=== PATIENT | male | born 1960 | race Caucasian/White ===

== ENCOUNTER 2017-08-26 07:56 | Emergency (ER) | payer MEDICARE, MEDICAID ==
[~2017-08-26 07:56] MED LIST: ALBU8.5H IH; BACDS PO; BUDE10.2 INH; BUSP10TA95 PO; CIPR-214 PO; DICL1ADH TP; DOCU-416 PO; DUL30 PO; DULO60CA51 PO; DULO60CA56 PO; GAB300 PO; GABA-549 PO; HYDR2TAB74 PO; IBUP-2708 PO; LISI-374 PO; LISI20TA29 PO; LOR5 PO; LOR5/325 PO; METH-543 PO; METR-160 PO; MIRT-1 PO; OMEP-137 PO; OXYC-823 PO; OXYC-854 PO; OXYC-865 PO; OXYC1TAB54 PO; PER PO; PERCODAN PO; PRED-314 PO; SIMV-49 PO; TADA5TAB7 PO; TIZ4 PO; [UNRECOGNIZED DRUG - CODE] PO
--- NOTE | 2017-08-26 08:03 | ER Report ---
History and Physical Time Seen By MD: 08:01 HPI/ROS CHIEF COMPLAINT: Abdominal pain HISTORY OF PRESENT ILLNESS: Patient is a 56-year-old male who has had approximately 2-3 weeks of generalized abdominal pain which is worsened in the last 24 hours and states that it is accompanied with a decrease in caliber of stools along with tenesmus. He states he's been on the toilet for the last "20 hours" in the last 24 hours. He reports some nausea but no vomiting. Denies any fevers or chills. Reports crampy abdominal pain. Patient has had multiple abdominal surgeries in the past including multiple hernia repairs he also reports history of gallbladder surgery that required a stent of biliary drains secondary to peritonitis. Patient denies any urinary symptoms. Denies any chest pain or shortness of breath. REVIEW OF SYSTEMS: Constitutional: No fever, no chills. Eyes: No discharge. ENT: No sore throat. Cardiovascular: No chest pain, no palpitations. Respiratory: No cough, no shortness of breath. Gastrointestinal: Generalized abdominal pain associated with nausea no vomiting. Reports decreased frequency and caliber of stools Genitourinary: No hematuria. Musculoskeletal: No back pain. Skin: No rashes. Neurological: No headache. Allergies: Coded Allergies: iodine (Verified Allergy, Unknown, HIVES, 08/26/17) only from red fish ketoprofen (Verified Allergy, Unknown, HIVES, 08/26/17) Home Meds Active Scripts Metronidazole (FLAGYL) 500 Mg Tablet, 500 MG PO BID, #14 TAB 0 Refills Prov:JEAN-PAUL CH MD 08/26/17 Ciprofloxacin Hcl (CIPRO) 500 Mg Tablet, 500 MG PO BID, #14 TAB 0 Refills Prov:JEAN-PAUL CH MD 08/26/17 Ondansetron Hcl (ZOFRAN) 4 Mg Tablet, 4 MG PO Q8H for Nausea, #15 TAB 0 Refills Prov:JEAN-PAUL CH MD 08/26/17 Reported Medications Diphenhydramine Hcl (BENADRYL) 25 Mg Capsule, 25 MG PO BID, CAPSULE 08/26/17 Albuterol Sulfate 90 Mcg/Act (PROAIR HFA 90 MCG/ACT) 8.5 Gm Hfa.aer.ad, 2 PUFF IH Q4-6H, INHALER 11/16/16 Budesonide/Formoterol Fumarate (SYMBICORT 160-4.5 MCG INHALER) 10.2 Gm Inh, 1 PUFF INH DAILY, INH 10/01/15 Omeprazole (OMEPRAZOLE) 20 Mg Tablet.dr, 20 MG PO QDAY, TAB 10/01/15 Buspirone Hcl (BUSPIRONE HCL) 10 Mg Tablet, 10 MG PO BID, #20 TAB 10/01/15 Gabapentin (GABAPENTIN) 300 Mg Capsule, 600 MG PO TID 08/28/12 Lisinopril (LISINOPRIL) 20 Mg Tablet, 20 MG PO QDAY 08/28/12 Discontinued Reported Medications Oxycodone Hcl (OXYCONTIN) 10 Mg Tab.er.12h, 10 MG PO Q6H, TAB 11/16/16 Simvastatin (SIMVASTATIN) 20 Mg Tablet, 20 MG PO HS, TAB 11/16/16 Discontinued Scripts Metronidazole (METRONIDAZOLE) 500 Mg Tablet, 500 MG PO Q12H, #14 TAB 0 Refills Prov:JEAN-PAUL CH MD 11/16/16 Ciprofloxacin Hcl (CIPROFLOXACIN HCL) 500 Mg Tablet, 500 MG PO Q12H, #14 TAB 0 Refills Prov:JEAN-PAUL CH MD 11/16/16 Oxycodone Hcl/Acet 5/325 Mg (ENDOCET 5-325 TABLET) 1 Each Tablet, 1 EACH PO Q4H for PAIN, #20 TAB 0 Refills Prov:JEAN-PAUL CH MD 11/16/16 Past Medical/Surgical History Past medical history for diverticulitis, asthma, COPD, posttraumatic stress disorder, hypertension, hepatitis C, chronic back pain. Past surgical history for cholecystectomy, history of left testicle removal, history of inguinal repair 3, history of surgical spinal fusion anterior spine C2-6. Hx Smoking: Yes (20 CIGS/DAY X 40YRS) Smoking Status: Current: Every Day Smoker Hx Substance Use Disorder: Yes (METH, COKE, OPIATES, clean for 7 years) Hx Alcohol Use: Yes Constitutional Vital Sign - Last 24 Hours 08/26/17 08/26/17 08/26/17 08/26/17 08:00 08:03 08:11 08:30 Temp 97.6 Pulse 102 103 Resp 16 B/P (MAP) 127/88 127/88 (101) 102/83 (89) Pulse Ox 97 96 O2 Delivery Room Air 08/26/17 08/26/17 08/26/17 08/26/17 08:41 08:56 09:00 09:11 Pulse 87 83 89 B/P (MAP) 95/63 (74) Pulse Ox 97 91 92 08/26/17 08/26/17 08/26/17 08/26/17 09:26 09:31 09:36 09:41 Pulse 85 86 84 89 Pulse Ox 91 94 94 92 08/26/17 08/26/17 08/26/17 08/26/17 09:46 09:51 09:56 10:00 Pulse 89 88 84 B/P (MAP) 97/67 (77) Pulse Ox 90 92 94 08/26/17 08/26/17 08/26/17 08/26/17 10:01 11:00 11:06 11:11 Pulse 90 86 86 B/P (MAP) 99/76 (84) Pulse Ox 96 89 91 08/26/17 08/26/17 08/26/17 08/26/17 11:26 11:30 11:41 11:56 Pulse 84 82 B/P (MAP) 89/65 (73) Pulse Ox 95 95 95 08/26/17 08/26/17 08/26/17 08/26/17 12:00 12:05 12:10 12:30 Pulse 82 79 B/P (MAP) 89/64 (72) 100/73 (82) Pulse Ox 95 97 08/26/17 08/26/17 08/26/17 13:00 13:30 13:35 Pulse 80 B/P (MAP) 85/63 (70) 86/68 (74) Pulse Ox 95 Intake and Output 08/26/17 08/26/17 08/27/17 15:00 23:00 07:00 Intake Total 1150 ml Balance 1150 ml Physical Exam General/Constitutional: Patient is awake, alert, nontoxic and in no acute respiratory distress. Head: Normocephalic and atraumatic. Eyes: Conjunctival clear, Pupils are equal and reactive to light. Extraocular muscles are intact and symmetrical. Sclera are clear and anicteric. Ears:External canals are clear. Tympanic membranes are clear with normal landmarks and light reflex. Nares: No rhinorrhea or bleeding. Turbinates are pink and moist. Oropharyngeal: Mucous membranes are moist. Neck: Supple, no adenopathy. Cardiovascular: Heart is regular rate and rhythm without audible murmurs, rubs or gallops. Pulmonary: Lungs are clear to auscultation bilaterally. There are no wheezes, rales, or rhonchi. Chest rise is symmetrical Abdomen: Soft, generalized pain with palpation. No voluntary or involuntary guarding no apparent peritoneal signs. Extremities: No gross deformities, No peripheral cyanosis. Able to move all 4 extremities. Neuro: Alert and oriented X3, Skin: No rashes, skin is warm dry and well perfused. Medical Decision Making Data Points Result Diagram: 08/26/17 0807 08/26/17 08 Laboratory Hematology Test 08/26/17 08:00 08/26/17 08:07 Urine Color Yellow Urine Clarity Clear Urine pH 7.0 pH (4.8-9.5) Urine Specific [place] 1.015 Urine Protein Negative mg/dL (NEGATIVE) Urine Glucose (UA) Negative mg/dL (NEGATIVE) Urine Ketones 20 mg/dL (NEGATIVE) Urine Blood Negative (NEGATIVE) Urine Nitrite Negative (NEGATIVE) Urine Bilirubin Negative (NEGATIVE) Urine Urobilinogen 4.0 mg/dL (0.2-1.9) Urine Leukocyte Esterase Negative (NEGATIVE) Urine RBC None /HPF (0-2/HPF) Urine WBC None /HPF (0-5/HPF) Urine Squamous Epithelial Cells None /LPF (</=FEW) Urine Bacteria Negative /HPF (NONE-FEW) Urine Mucus Few /HPF (NONE-FEW) Red Blood Count 5.87 M/uL (4.00-5.60) Mean Corpuscular Volume 86.3 fL (80.0-96.0) Mean Corpuscular Hemoglobin 29.9 pg (26.0-33.0) Mean Corpuscular Hemoglobin Concent 34.6 g/dL (32.0-36.0) Red Cell Distribution Width 13.1 % (11.5-14.5) Mean Platelet Volume 8.2 fL (7.2-11.1) Neutrophils (%) (Auto) 84.9 % (39.4-72.5) Lymphocytes (%) (Auto) 8.7 % (17.6-49.6) Monocytes (%) (Auto) 5.5 % (4.1-12.4) Eosinophils (%) (Auto) 0.3 % (0.4-6.7) Basophils (%) (Auto) 0.6 % (0.3-1.4) Nucleated RBC Relative Count (auto) 0.0 /100WBC Neutrophils # (Auto) 16.2 K/uL (2.0-7.4) Lymphocytes # (Auto) 1.7 K/uL (1.3-3.6) Monocytes # (Auto) 1.1 K/uL (0.3-1.0) Eosinophils # (Auto) 0.1 K/uL (0.0-0.5) Basophils # (Auto) 0.1 K/uL (0.0-0.1) Nucleated RBC Absolute Count (auto) 0.00 K/uL Peripheral Blood Smear Yes Y/N Prothrombin Time 13.9 seconds (12.0-14.4) Prothromb Time International Ratio 1.07 Activated Partial Thromboplast Time 42 seconds (23-35) Sodium Level 138 mmol/L (137-145) Potassium Level 3.9 mmol/L (3.5-5.0) Chloride Level 99 mmol/L (98-107) Carbon Dioxide Level 24 mmol/L (22-30) Blood Urea Nitrogen 10 mg/dl (9-21) Creatinine 0.90 mg/dl (0.66-1.25) Glomerular Filtration Rate Calc > 60.0 Random Glucose 141 mg/dl (75-110) Calcium Level 9.4 mg/dl (8.4-10.2) Total Bilirubin 1.0 mg/dl (0.2-1.3) Aspartate Amino Transf (AST/SGOT) 18 U/L (0-35) Alanine Aminotransferase (ALT/SGPT) 26 U/L (0-56) Alkaline Phosphatase 99 U/L (0-126) Total Protein 7.9 g/dl (6.3-8.2) Albumin 4.3 g/dl (3.5-5.0) Amylase Level 59 U/L (0-110) Lipase 33 U/L (23-300) Helicobacter pylori IgG Antibody Negative (NEGATIVE) Chemistry Test 08/26/17 08:00 08/26/17 08:07 Urine Color Yellow Urine Clarity Clear Urine pH 7.0 pH (4.8-9.5) Urine Specific [place] 1.015 Urine Protein Negative mg/dL (NEGATIVE) Urine Glucose (UA) Negative mg/dL (NEGATIVE) Urine Ketones 20 mg/dL (NEGATIVE) Urine Blood Negative (NEGATIVE) Urine Nitrite Negative (NEGATIVE) Urine Bilirubin Negative (NEGATIVE) Urine Urobilinogen 4.0 mg/dL (0.2-1.9) Urine Leukocyte Esterase Negative (NEGATIVE) Urine RBC None /HPF (0-2/HPF) Urine WBC None /HPF (0-5/HPF) Urine Squamous Epithelial Cells None /LPF (</=FEW) Urine Bacteria Negative /HPF (NONE-FEW) Urine Mucus Few /HPF (NONE-FEW) White Blood Count 19.1 k/uL (4.5-11.0) Red Blood Count 5.87 M/uL (4.00-5.60) Hemoglobin 17.5 g/dL (14.0-18.0) Hematocrit 50.7 % (42.0-52.0) Mean Corpuscular Volume 86.3 fL (80.0-96.0) Mean Corpuscular Hemoglobin 29.9 pg (26.0-33.0) Mean Corpuscular Hemoglobin Concent 34.6 g/dL (32.0-36.0) Red Cell Distribution Width 13.1 % (11.5-14.5) Platelet Count 509 K/uL (150-450) Mean Platelet Volume 8.2 fL (7.2-11.1) Neutrophils (%) (Auto) 84.9 % (39.4-72.5) Lymphocytes (%) (Auto) 8.7 % (17.6-49.6) Monocytes (%) (Auto) 5.5 % (4.1-12.4) Eosinophils (%) (Auto) 0.3 % (0.4-6.7) Basophils (%) (Auto) 0.6 % (0.3-1.4) Nucleated RBC Relative Count (auto) 0.0 /100WBC Neutrophils # (Auto) 16.2 K/uL (2.0-7.4) Lymphocytes # (Auto) 1.7 K/uL (1.3-3.6) Monocytes # (Auto) 1.1 K/uL (0.3-1.0) Eosinophils # (Auto) 0.1 K/uL (0.0-0.5) Basophils # (Auto) 0.1 K/uL (0.0-0.1) Nucleated RBC Absolute Count (auto) 0.00 K/uL Peripheral Blood Smear Yes Y/N Prothrombin Time 13.9 seconds (12.0-14.4) Prothromb Time International Ratio 1.07 Activated Partial Thromboplast Time 42 seconds (23-35) Glomerular Filtration Rate Calc > 60.0 Calcium Level 9.4 mg/dl (8.4-10.2) Total Bilirubin 1.0 mg/dl (0.2-1.3) Aspartate Amino Transf (AST/SGOT) 18 U/L (0-35) Alanine Aminotransferase (ALT/SGPT) 26 U/L (0-56) Alkaline Phosphatase 99 U/L (0-126) Total Protein 7.9 g/dl (6.3-8.2) Albumin 4.3 g/dl (3.5-5.0) Amylase Level 59 U/L (0-110) Lipase 33 U/L (23-300) Helicobacter pylori IgG Antibody Negative (NEGATIVE) Coagulation Test 08/26/17 08:07 Prothrombin Time 13.9 seconds Prothromb Time International Ratio 1.07 Activated Partial Thromboplast Time 42 seconds Urinalysis Test 08/26/17 08:00 Urine Color Yellow Urine Clarity Clear Urine pH 7.0 pH (4.8-9.5) Urine Specific [place] 1.015 Urine Protein Negative mg/dL (NEGATIVE) Urine Glucose (UA) Negative mg/dL (NEGATIVE) Urine Ketones 20 mg/dL (NEGATIVE) Urine Blood Negative (NEGATIVE) Urine Nitrite Negative (NEGATIVE) Urine Bilirubin Negative (NEGATIVE) Urine Urobilinogen 4.0 mg/dL (0.2-1.9) Urine Leukocyte Esterase Negative (NEGATIVE) Urine RBC None /HPF (0-2/HPF) Urine WBC None /HPF (0-5/HPF) Urine Squamous Epithelial Cells None /LPF (</=FEW) Urine Bacteria Negative /HPF (NONE-FEW) Urine Mucus Few /HPF (NONE-FEW) EKG/Imaging EKG Interpretation EKG shows normal sinus rhythm with a ventricular rate of [address] segment or T-wave abnormalities. Monitor Interpretation: Normal Sinus Rhythm ED Course/Re-evaluation Clinical Indication for ER IV: Hydration, IV Access ED Course 08/26/2017 9:17:06 am patient with an elevated white blood cell count 19,000 with a left shift. Obstruction series shows nonobstructive bowel gas pattern however patient still having pain. Our CT scanner is not functioning currently. There is enough suspicion that the patient may have some abdominal pathology based on his history and physical exam as well as elevated white blood cell count with left shift. Plan will be a non-contrast MRI of the abdomen and pelvis at this time. Patient made aware of his current emergency department plan and understands he will be getting an MRI. MRI concerning for diverticulitis but also thickening of the rectosigmoid colon it was recommended that after completion of treatment for diverticulitis the patient schedule follow up for an outpatient colonoscopy; this information, including MRI findings were discussed with the patient and the need to follow up for the outpatient colonoscopy were discussed. Nurse Lexi Bansal was present for this discusion. Patient will be prescribed cipro, flagyl and zofran. A script for 120; ten milligram oxycodone was just filled by the patient on 08/12/2017; patient was instructed to take this as directed for pain. Decision to Disposition Date: Aug 26, 2017 Decision to Disposition Time: 13:51 Depart Departure Latest Vital Signs Vital Signs Date Time Temp Pulse Resp B/P (MAP) Pulse Ox O2 Delivery O2 Flow Rate FiO2 08/26/17 13:35 80 95 08/26/17 13:30 86/68 (74) 08/26/17 08:00 97.6 16 Room Air Impression: Primary Impression: Diverticulitis Condition: Improved Disposition: HOME OR SELF-CARE Referrals: RAHUL TORRES (PCP) 1 Week If symptoms persist RENNY MONTGOMERY MD To schedule an outpatient colonoscopy within the next 30 days New Scripts Metronidazole (FLAGYL) 500 Mg Tablet 500 MG PO BID, #14 TAB 0 Refills Prov: JEAN-PAUL CH MD 08/26/17 Ciprofloxacin Hcl (CIPRO) 500 Mg Tablet 500 MG PO BID, #14 TAB 0 Refills Prov: JEAN-PAUL CH MD 08/26/17 Ondansetron Hcl (ZOFRAN) 4 Mg Tablet 4 MG PO Q8H for Nausea, #15 TAB 0 Refills Prov: JEAN-PAUL CH MD 08/26/17 Patient Instructions: Diverticulitis (ED) Additional Instructions: Your MRI today showed thickening of the rectosigmoid colon, this most likely represent acute diverticulitis however colon cancer was not excluded. You will be treated with antibiotics and pain medication over the next week for treatment of the diverticulitis. Because of the MRI finding, it is still recommended that you schedule a follow-up appointment with your primary care provider or a general surgeon to schedule an outpatient colonoscopy to either identify or rule out potential malignancy (cancer). We will provide you with contact information for Dr. Dudley Doran who is a general surgeon and can perform the colonoscopy in [place]. JEAN-PAUL CH MD Aug 26, 2017 08:03
[2017-08-26] MEDS ORDERED: DIPH-740 PO (08:05)
[2017-08-26] MEDS ORDERED: NS(*) 0.9% 1000 ML BAG 1,000 ML IV ONE (08:07)
[2017-08-26 08:19] LABS: PLATELET COUNT, AUTOMATED 509 K/uL (150-450)
[2017-08-26] MEDS ORDERED: ONDANSETRON 4 MG/2 ML VIAL IVP ONE (08:20)
[2017-08-26] MEDS ORDERED: KETOROLAC 15 MG/ML VIAL IVP ONE (08:20)
[2017-08-26 08:24] LABS: INR 1.07
[2017-08-26] MEDS ORDERED: diphenhydrAMINE 50 MG/ML VIAL IVP ONE (08:25)
--- NOTE | 2017-08-26 08:28 | EKG ---
FACILITY: [facility] - [place] PATIENT NAME: CANDACE WADDELL : [id number] MR: [id number] V: [id number] EXAM DATE: ORDERING PHYSICIAN: JEAN-PAUL CH TECHNOLOGIST: KEN De La Cruz Reason : PAIN Blood Pressure : / mmHG Vent. Rate : 097 BPM Atrial Rate : 097 BPM P-R Int : 144 ms QRS Dur : 094 ms QT Int : 372 ms P-R-T Axes : 050 037 042 degrees QTc Int : 472 ms Normal sinus rhythm Normal ECG When compared with ECG of 27-SEP-2012 09:25, No significant change was found Confirmed by RENNY MARSH ([id number]) on 08/28/2017 2:44:50 PM Referred By: DIMA Confirmed By:RENNY MARSH
--- NOTE | 2017-08-26 09:02 | RADIOLOGY IMAGING REPORT ---
FACILITY: [facility] - [place] PATIENT NAME: Francis Storey : 1960 MR: [id number] V: [id number] EXAM DATE: ORDERING PHYSICIAN: JEAN-PAUL CH TECHNOLOGIST: Location: [facility] - [place] Patient: Francis Storey : 1960 Visit/Account:[id number] Date of Sevice: 08/26/2017 Exam type: ACUTE ABDOMEN SERIES 3 VIEW INDICATION: Abdominal pain x3 weeks. COMPARISON: Chest radiograph dated September 27, 2012. FINDINGS: Heart size within normal limits. There is no focal infiltrate or consolidation. Mild diffu se bronchial wall thickening. No evidence of pneumothorax or pleural effusion. Chronic nonspecific elevation of the right hemidiaphragm. Partial visualization of cervical fusion hardware. Bowel gas seen throughout the abdomen in a nonobstructive pattern. There are no pathologic calcificat ions identified. No evidence of free air under the right hemidiaphragm. IMPRESSION: 1. No acute cardiopulmonary process. 2. Nonobstructive bowel gas pattern Report Dictated By: Macho Rosas MD at 08/26/2017 8:54 AM Report E-Signed By: Macho Rosas MD at 08/26/2017 8:56 AM WSN:[email or web address]
[2017-08-26] MEDS ORDERED: LORazepam 2 MG/ML VIAL IVP ONE (09:10)
--- NOTE | 2017-08-26 11:33 | RADIOLOGY IMAGING REPORT ---
FACILITY: [facility] [place] PATIENT NAME: rFancis Storey : 1960 MR: [id number] V: [id number] EXAM DATE: ORDERING PHYSICIAN: JEAN-PAUL CH TECHNOLOGIST: Location: [facility] - [place] Patient: Francis Storey : 1960 Visit/Account:[id number] Date of Sevice: 08/26/2017 Exam type: ABDOMEN W/O CONTRAST, PELVIS W/O CONTRAST History: abdominal pain Comparison: CT scan 11/16/2016. TECHNIQUE: Multiplanar multisequence MRI imaging of the abdomen and pelvis was performed without cont rast. Findings: Abdomen: There is elevation the right hemidiaphragm which appears unchanged. Liver measures 20 cm in craniocau nicholas length. Some small benign subcentimeter cysts are noted in the left lobe of liver. Gallbladder is absent. Spleen measures 10.9 cm in length. Low density along the lateral margin the spleen corresponds to nirmal cium on prior exam is likely benign. Adrenals and pancreas are unremarkable. Some small benign renal cortical cysts are noted. No free fluid. There is a small hiatal hernia. Pelvis: Imaging of the pelvis demonstrates diverticulosis. There is some inflammation and thickening of the r ectosigmoid colon suggesting diverticulitis. Malignancy is not excluded by MRI and without contrast. No obvious abscess within the limits of MRI. The osseous structures are unremarkable. IMPRESSION: 1. There appears to be diverticulitis of the rectosigmoid colon in the deep pelvis with thickening an d inflammation amongst a background of diverticulosis. No obvious abscess of the pelvis within limits of a noncontrast study. Malignancy would be difficult to exclude by MRI. Recommend colonoscopy when the patient's acute inflammation resolves unless the patient has had recen t colonoscopy. Report Dictated By: Mehul Garcia MD at 08/26/2017 11:14 AM Report E-Signed By: Mehul Garcia MD at 08/26/2017 11:29 AM WSN:[id number]
--- NOTE | 2017-08-26 11:33 | RADIOLOGY IMAGING REPORT ---
FACILITY: [facility] - [place] PATIENT NAME: Francis Storey : 1960 MR: [id number] V: [id number] EXAM DATE: ORDERING PHYSICIAN: JEAN-PAUL CH TECHNOLOGIST: Location: [facility] - [place] Patient: Francis Storey : 1960 Visit/Account:[id number] Date of Sevice: 08/26/2017 Exam type: ABDOMEN W/O CONTRAST, PELVIS W/O CONTRAST History: abdominal pain Comparison: CT scan 11/16/2016. TECHNIQUE: Multiplanar multisequence MRI imaging of the abdomen and pelvis was performed without cont rast. Findings: Abdomen: There is elevation the right hemidiaphragm which appears unchanged. Liver measures 20 cm in craniocau nicholas length. Some small benign subcentimeter cysts are noted in the left lobe of liver. Gallbladder is absent. Spleen measures 10.9 cm in length. Low density along the lateral margin the spleen corresponds to nirmal cium on prior exam is likely benign. Adrenals and pancreas are unremarkable. Some small benign renal cortical cysts are noted. No free fluid. There is a small hiatal hernia. Pelvis: Imaging of the pelvis demonstrates diverticulosis. There is some inflammation and thickening of the r ectosigmoid colon suggesting diverticulitis. Malignancy is not excluded by MRI and without contrast. No obvious abscess within the limits of MRI. The osseous structures are unremarkable. IMPRESSION: 1. There appears to be diverticulitis of the rectosigmoid colon in the deep pelvis with thickening an d inflammation amongst a background of diverticulosis. No obvious abscess of the pelvis within limits of a noncontrast study. Malignancy would be difficult to exclude by MRI. Recommend colonoscopy when the patient's acute inflammation resolves unless the patient has had recen t colonoscopy. Report Dictated By: Mehul Garcia MD at 08/26/2017 11:14 AM Report E-Signed By: Mehul Garcia MD at 08/26/2017 11:29 AM WSN:[id number]
[2017-08-26] MEDS ORDERED: LEVOFLOXACIN/D5W 750 MG/150 ML 150 ML IVPB ONE (12:00)
[2017-08-26] MEDS ORDERED: ONDA4TAB97 PO (13:02)
[2017-08-26] MEDS ORDERED: LOR5/325 PO (13:02)
[2017-08-26 13:30] VITALS: BP 86/68
[2017-08-26] MEDS ORDERED: CIPR-344 PO (13:43)
[2017-08-26] MEDS ORDERED: METR-1 PO (13:43)
== END 2017-08-26 13:46 | disposition home or self-care (01) ==
LOC: ER 08:18
DX: K57.32 Diverticulitis of large intestine without perforation or abscess without bleeding (principal)
CPT/HCPCS: 72195; 74022; 74181; 81001; 82150; 83690; 85025; 85610; 85730; 86677; 87088; 93005; 96361; 96374; 96375; 99285; J1200; J1885; J1956; J2060; J2405; J7030; 82040; 82247; 82310; 82374; 82435; 82565; 82947; 84075; 84132; 84155; 84295; 84450; 84460; 84520

== ENCOUNTER 2017-09-05 10:20 | Emergency (ER) | payer MEDICARE, MEDICAID ==
--- NOTE | 2017-09-05 10:24 | ER Report ---
History and Physical Time Seen By MD: 10:24 HPI/ROS CHIEF COMPLAINT: Abdominal pain; sent from [facility] urgent care HISTORY OF PRESENT ILLNESS: Patient is a 56-year-old male who I had seen on August 26 for 2-3 weeks of generalized abdominal pain. During that visit the patient had an MRI of his abdomen is worse CT scanner was down which showed probable diverticulitis but also concern for narrowing of the rectosigmoid colon. She was started on Cipro and Flagyl to treat the diverticulitis. Patient states that he completed the entire course. Because of the finding on MRI the patient was referred to Dr. Dudley Doran which he has an appointment on September 12 for evaluation of his abdominal pain and possible colonoscopy. Patient states he has no improvement on the antibiotics Patient was seen today at [facility] urgent care secondary to persistent abdominal symptoms. An x-ray was performed which was concerning for possible ileus. For this reason the patient was sent to the emergency department for further evaluation. REVIEW OF SYSTEMS: Constitutional: No fever, no chills. Eyes: No discharge. ENT: No sore throat. Cardiovascular: No chest pain, no palpitations. Respiratory: No cough, no shortness of breath. Gastrointestinal: Left upper quadrant and left lower quadrant abdominal pain, frequent painful stools bloating Genitourinary: No hematuria. Musculoskeletal: No back pain. Skin: No rashes. Neurological: No headache. Allergies: Coded Allergies: iodine (Verified Allergy, Unknown, HIVES, 09/05/17) only from red fish ketoprofen (Verified Allergy, Unknown, HIVES, 09/05/17) Home Meds Reported Medications Diphenhydramine Hcl (BENADRYL) 25 Mg Capsule, 25 MG PO BID, CAPSULE 08/26/17 Albuterol Sulfate 90 Mcg/Act (PROAIR HFA 90 MCG/ACT) 8.5 Gm Hfa.aer.ad, 2 PUFF IH Q4-6H, INHALER 11/16/16 Budesonide/Formoterol Fumarate (SYMBICORT 160-4.5 MCG INHALER) 10.2 Gm Inh, 1 PUFF INH DAILY, INH 10/01/15 Omeprazole (OMEPRAZOLE) 20 Mg Tablet.dr, 20 MG PO QDAY, TAB 10/01/15 Buspirone Hcl (BUSPIRONE HCL) 10 Mg Tablet, 10 MG PO BID, #20 TAB 10/01/15 Gabapentin (GABAPENTIN) 300 Mg Capsule, 600 MG PO TID 08/28/12 Lisinopril (LISINOPRIL) 20 Mg Tablet, 20 MG PO QDAY 08/28/12 Discontinued Scripts Metronidazole (FLAGYL) 500 Mg Tablet, 500 MG PO BID, #14 TAB 0 Refills Prov:JEAN-PAUL CH MD 08/26/17 Ciprofloxacin Hcl (CIPRO) 500 Mg Tablet, 500 MG PO BID, #14 TAB 0 Refills Prov:JEAN-PAUL HC MD 08/26/17 Ondansetron Hcl (ZOFRAN) 4 Mg Tablet, 4 MG PO Q8H for Nausea, #15 TAB 0 Refills Prov:JEAN-PAUL CH MD 08/26/17 Past Medical/Surgical History Past medical history for degenerative lumbar disc disease, history of chronic pain syndrome history of Ortiz's esophagitis, Hep C, history of diverticulitis., History of hypertension history of reactive airways disease Hx Smoking: Yes (20 CIGS/DAY X 40YRS) Smoking Status: Current: Every Day Smoker Hx Substance Use Disorder: Yes (METH, COKE, OPIATES, clean for 7 years) Hx Alcohol Use: Yes Constitutional Vital Sign - Last 24 Hours 09/05/17 09/05/17 09/05/17 09/05/17 10:26 10:30 10:45 11:00 Temp 98.7 Pulse 107 110 98 93 Resp 18 B/P (MAP) 142/102 139/116 (124) 130/86 (101) 123/73 (90) Pulse Ox 97 98 95 99 O2 Delivery Room Air 09/05/17 09/05/17 09/05/17 11:30 11:45 12:00 Pulse 98 97 B/P (MAP) 128/81 (97) 133/85 (101) 136/76 (96) Pulse Ox 90 94 97 Intake and Output 09/05/17 09/05/17 09/06/17 15:00 23:00 07:00 Intake Total 1000 ml Balance 1000 ml Physical Exam General/Constitutional: Patient is awake, alert, nontoxic and in no acute respiratory distress. Anxious appearing Head: Normocephalic and atraumatic. Eyes: Conjunctival clear, Pupils are equal and reactive to light. Extraocular muscles are intact and symmetrical. Sclera are clear and anicteric. Ears:External canals are clear. Tympanic membranes are clear with normal landmarks and light reflex. Nares: No rhinorrhea or bleeding. Turbinates are pink and moist. Oropharyngeal: Mucous membranes are moist. There is no pharyngeal erythema or exudate. There are no palatal petechiae. Uvula is midline and symmetrical. Neck: Supple, no adenopathy. Cardiovascular: Heart is regular rate and rhythm without audible murmurs, rubs or gallops. Pulmonary: Lungs are clear to auscultation bilaterally. There are no wheezes, rales, or rhonchi. Chest rise is symmetrical Abdomen: Diffuse abdominal pain but left upper and left lower quadrant more severe. No rebound tenderness but voluntary guarding is noted. Extremities: No gross deformities, No peripheral cyanosis. Able to move all 4 extremities. Neuro: Alert and oriented X3, Cranial nerves 2 thru 12 are intact and symmetrical. Skin: No rashes, skin is warm dry and well perfused. Medical Decision Making Data Points Result Diagram: 09/05/17 1032 09/05/17 1032 Laboratory Hematology Test 09/05/17 10:32 09/05/17 12:15 Red Blood Count 6.09 M/uL (4.00-5.60) Mean Corpuscular Volume 84.9 fL (80.0-96.0) Mean Corpuscular Hemoglobin 29.4 pg (26.0-33.0) Mean Corpuscular Hemoglobin Concent 34.6 g/dL (32.0-36.0) Red Cell Distribution Width 13.6 % (11.5-14.5) Mean Platelet Volume 8.2 fL (7.2-11.1) Neutrophils (%) (Auto) 79.4 % (39.4-72.5) Lymphocytes (%) (Auto) 12.1 % (17.6-49.6) Monocytes (%) (Auto) 7.3 % (4.1-12.4) Eosinophils (%) (Auto) 0.3 % (0.4-6.7) Basophils (%) (Auto) 0.9 % (0.3-1.4) Nucleated RBC Relative Count (auto) 0.0 /100WBC Neutrophils # (Auto) 15.7 K/uL (2.0-7.4) Lymphocytes # (Auto) 2.4 K/uL (1.3-3.6) Monocytes # (Auto) 1.4 K/uL (0.3-1.0) Eosinophils # (Auto) 0.1 K/uL (0.0-0.5) Basophils # (Auto) 0.2 K/uL (0.0-0.1) Nucleated RBC Absolute Count (auto) 0.00 K/uL Peripheral Blood Smear Yes Y/N Sodium Level 141 mmol/L (137-145) Potassium Level 3.4 mmol/L (3.5-5.0) Chloride Level 96 mmol/L (98-107) Carbon Dioxide Level 27 mmol/L (22-30) Blood Urea Nitrogen 8 mg/dl (9-21) Creatinine 0.80 mg/dl (0.66-1.25) Glomerular Filtration Rate Calc > 60.0 Random Glucose 112 mg/dl (75-110) Calcium Level 9.7 mg/dl (8.4-10.2) Total Bilirubin 0.7 mg/dl (0.2-1.3) Aspartate Amino Transf (AST/SGOT) 17 U/L (0-35) Alanine Aminotransferase (ALT/SGPT) 17 U/L (0-56) Alkaline Phosphatase 88 U/L (0-126) Total Protein 8.2 g/dl (6.3-8.2) Albumin 4.1 g/dl (3.5-5.0) Amylase Level 67 U/L (0-110) Lipase 42 U/L (23-300) Helicobacter pylori IgG Antibody Negative (NEGATIVE) Urine Color Yellow Urine Clarity Clear Urine pH 7.0 pH (4.8-9.5) Urine Specific [place] 1.057 Urine Protein Negative mg/dL (NEGATIVE) Urine Glucose (UA) Negative mg/dL (NEGATIVE) Urine Ketones Negative mg/dL (NEGATIVE) Urine Blood Negative (NEGATIVE) Urine Nitrite Negative (NEGATIVE) Urine Bilirubin Negative (NEGATIVE) Urine Urobilinogen Negative mg/dL (0.2-1.9) Urine Leukocyte Esterase Negative (NEGATIVE) Urine RBC None /HPF (0-2/HPF) Urine WBC <1 /HPF (0-5/HPF) Urine Squamous Epithelial Cells None /LPF (</=FEW) Urine Bacteria Negative /HPF (NONE-FEW) Urine Mucus None /HPF (NONE-FEW) Chemistry Test 09/05/17 10:32 09/05/17 12:15 White Blood Count 19.7 k/uL (4.5-11.0) Red Blood Count 6.09 M/uL (4.00-5.60) Hemoglobin 17.9 g/dL (14.0-18.0) Hematocrit 51.7 % (42.0-52.0) Mean Corpuscular Volume 84.9 fL (80.0-96.0) Mean Corpuscular Hemoglobin 29.4 pg (26.0-33.0) Mean Corpuscular Hemoglobin Concent 34.6 g/dL (32.0-36.0) Red Cell Distribution Width 13.6 % (11.5-14.5) Platelet Count 618 K/uL (150-450) Mean Platelet Volume 8.2 fL (7.2-11.1) Neutrophils (%) (Auto) 79.4 % (39.4-72.5) Lymphocytes (%) (Auto) 12.1 % (17.6-49.6) Monocytes (%) (Auto) 7.3 % (4.1-12.4) Eosinophils (%) (Auto) 0.3 % (0.4-6.7) Basophils (%) (Auto) 0.9 % (0.3-1.4) Nucleated RBC Relative Count (auto) 0.0 /100WBC Neutrophils # (Auto) 15.7 K/uL (2.0-7.4) Lymphocytes # (Auto) 2.4 K/uL (1.3-3.6) Monocytes # (Auto) 1.4 K/uL (0.3-1.0) Eosinophils # (Auto) 0.1 K/uL (0.0-0.5) Basophils # (Auto) 0.2 K/uL (0.0-0.1) Nucleated RBC Absolute Count (auto) 0.00 K/uL Peripheral Blood Smear Yes Y/N Glomerular Filtration Rate Calc > 60.0 Calcium Level 9.7 mg/dl (8.4-10.2) Total Bilirubin 0.7 mg/dl (0.2-1.3) Aspartate Amino Transf (AST/SGOT) 17 U/L (0-35) Alanine Aminotransferase (ALT/SGPT) 17 U/L (0-56) Alkaline Phosphatase 88 U/L (0-126) Total Protein 8.2 g/dl (6.3-8.2) Albumin 4.1 g/dl (3.5-5.0) Amylase Level 67 U/L (0-110) Lipase 42 U/L (23-300) Helicobacter pylori IgG Antibody Negative (NEGATIVE) Urine Color Yellow Urine Clarity Clear Urine pH 7.0 pH (4.8-9.5) Urine Specific [place] 1.057 Urine Protein Negative mg/dL (NEGATIVE) Urine Glucose (UA) Negative mg/dL (NEGATIVE) Urine Ketones Negative mg/dL (NEGATIVE) Urine Blood Negative (NEGATIVE) Urine Nitrite Negative (NEGATIVE) Urine Bilirubin Negative (NEGATIVE) Urine Urobilinogen Negative mg/dL (0.2-1.9) Urine Leukocyte Esterase Negative (NEGATIVE) Urine RBC None /HPF (0-2/HPF) Urine WBC <1 /HPF (0-5/HPF) Urine Squamous Epithelial Cells None /LPF (</=FEW) Urine Bacteria Negative /HPF (NONE-FEW) Urine Mucus None /HPF (NONE-FEW) Urinalysis Test 09/05/17 12:15 Urine Color Yellow Urine Clarity Clear Urine pH 7.0 pH (4.8-9.5) Urine Specific [place] 1.057 Urine Protein Negative mg/dL (NEGATIVE) Urine Glucose (UA) Negative mg/dL (NEGATIVE) Urine Ketones Negative mg/dL (NEGATIVE) Urine Blood Negative (NEGATIVE) Urine Nitrite Negative (NEGATIVE) Urine Bilirubin Negative (NEGATIVE) Urine Urobilinogen Negative mg/dL (0.2-1.9) Urine Leukocyte Esterase Negative (NEGATIVE) Urine RBC None /HPF (0-2/HPF) Urine WBC <1 /HPF (0-5/HPF) Urine Squamous Epithelial Cells None /LPF (</=FEW) Urine Bacteria Negative /HPF (NONE-FEW) Urine Mucus None /HPF (NONE-FEW) ED Course/Re-evaluation Clinical Indication for ER IV: IV Access ED Course 09/05/2017 11:03:02 am patient with abdominal pain for the past 4-6 weeks. Patient scheduled to see Dr. Dudley Billy in consultation on September 12. MRI from August 26 shows likely diverticulitis but also thickening of the rectosigmoid colon which could be consistent with malignancy. Patient does admit to having frequent small caliber bowel movements. Plan at this time will be abdominal workup with CT scan we will give her pain medication using ketamine drip to avoid opiate use which can slow transit time. We'll also give a small dose of IV Ativan, Zantac as well as Reglan for nausea. 09/05/2017 12:29:53 pm history physical exam case bloodwork CT scan findings discussed with the on-call surgeon Dr. Rao; he is requesting that we call back to [facility] radiology to see if this would be something interventional radiology could drain. I discussed the case with Dr. Rosas who originally read the film he will be calling me back to state whether or not this procedure can be done at one of their facilities. 09/05/2017 12:59:[address] Hood from [facility] which is the most appropriate and closest facility to care for this patient. He agreed to accept the patient on the medicine service and they will consult interventional radiology for potential drain of his diverticular abscess. This was explained to the patient he understands he will be going to [facility] by ambulance. Decision to Disposition Date: Sep 05, 2017 Decision to Disposition Time: 13:01 Depart Departure Latest Vital Signs Vital Signs Date Time Temp Pulse Resp B/P (MAP) Pulse Ox O2 Delivery O2 Flow Rate FiO2 09/05/17 12:00 97 136/76 (96) 97 09/05/17 10:26 98.7 18 Room Air Impression: Primary Impression: Diverticulitis Additional Impression: Colonic diverticular abscess Condition: Condition Unchanged Disposition: XFER TO ACUTE CARE HOSPITAL (to Dr Hood at [facility]) Problem Qualifiers JEAN-PAUL CH MD Sep 05, 2017 10:24
[2017-09-05] MEDS ORDERED: NS(*) 0.9% 1000 ML BAG 1,000 ML IV ONE (10:44)
[2017-09-05] MEDS ORDERED: METOCLOPRAMIDE 10 MG/2 ML SDV IVP ONE (10:45)
[2017-09-05] MEDS ORDERED: LORazepam 2 MG/ML VIAL IVP ONE (10:45)
[2017-09-05] MEDS ORDERED: RANITIDINE 150 MG/10 ML UDC PO SCH (10:45)
[2017-09-05 10:53] LABS: PLATELET COUNT, AUTOMATED 618 K/uL (150-450)
[2017-09-05] MEDS ORDERED: IOPAMIDOL 76% 75 ML INFUS BTL 75 ML ONE (10:56)
[2017-09-05] MEDS ORDERED: KETAMINE HCL(*)500MG/5ML VIAL 500 MG in NS(*) 0.9% 500 ML BAG 495 ML IVPB ONE (11:00)
[2017-09-05] MEDS ORDERED: PIPERACILLIN/TAZO* 4.5 GM VIAL 4.5 GM in NS(*) 0.9% 100 ML ADDVANT BAG 100 ML IVPB ONE (12:15)
--- NOTE | 2017-09-05 12:16 | RADIOLOGY IMAGING REPORT ---
FACILITY: [facility] PATIENT NAME: Francis Storey : 1960 MR: [id number] V: [id number] EXAM DATE: ORDERING PHYSICIAN: JEAN-PAUL CH TECHNOLOGIST: Location: [facility] Patient: Francis Storey : 1960 Visit/Account:[id number] Date of Sevice: 09/05/2017 ABDOMEN/PELVIS WITH CONTRAST HISTORY: Abdominal pain TECHNIQUE: CT abdomen and pelvis with intravenous contrast. One of the following dose optimization techniques was utilized in the performance of this exam: Autom ated exposure control; adjustment of the mA and/or kV according to the patient's size; or use of an i terative reconstruction technique. Specific details can be referenced in the facility's radiology C T exam operational policy. CONTRAST: 75 mL Isovue-370. COMPARISON: CT dated November 16, 2016. MRI dated August 26, 2017. FINDINGS: Visualized lung bases: Few small subpleural pulmonary nodules which are grossly unchanged and consid ered benign given chronicity. Small hiatal hernia. At least mild calcification within the visualized RCA. Otherwise negative. Hepatobiliary: Numerous small cysts and subcentimeter hypodensities which are too small to character ize however statistically represents simple cysts. Gallbladder surgically absent. Otherwise negative. Spleen: Dystrophic calcification along the lateral margin of the spleen, grossly unchanged and benig n given appearance and stability. Adrenals: Negative. Pancreas: Negative. Kidneys/: Negative. GI: Long segment of significant inflammation within the sigmoid colon with wall thickening and raquel lonic inflammation. This appears to be related to diverticulitis. There is abutting focal gas and flu id collection measuring approximately 6.3 x 4.2 x 3.2 cm (axial image 116 and coronal image 44). Prom inence of the appendix which measures up to 9 mm however there is gas within the tip. The prominence is favored reactive to the diverticulitis. No free air is identified. There is heterogeneous soft tis carlito adjacent to the abscess (axial image 116), and more distally within the sigmoid colon (image 130) , likely related to inflammation however cannot exclude underlying malignancy. Vessels/spaces/nodes: Small nonspecific inferior mesenteric lymph nodes, likely reactive. No pathol ogically enlarged lymph nodes are identified. Trace free fluid within the pelvis, likely reactive. Mi ld atherosclerosis within the abdominal aorta. Bones/soft tissues: Negative. IMPRESSION: 1. Long segment of significant inflammation within the sigmoid colon with wall thickening and pericol onic inflammation. This appears to be related to diverticulitis however cannot exclude underlying mal ignancy. There is abutting focal gas and fluid collection measuring approximately 6.3 x 4.2 x 3.2 cm, compatible with abscess. There is overall progression since prior MRI from August 26, 2017. 2. Prominence of the appendix which is favored reactive to adjacent inflammation within the sigmoid c olon. There is gas within the tip of the appendix which argues against appendicitis. 3. Additional incidental/chronic findings, as above. Results were discussed with JEAN-PAUL CH at 09/05/2017 12:09 PM. Report Dictated By: Macho Rosas MD at 09/05/2017 11:59 AM Report E-Signed By: Macho Rosas MD at 09/05/2017 12:12 PM WSN:[id number]
[2017-09-05 13:30] VITALS: BP 106/79
== END 2017-09-05 13:55 | disposition short-term general hospital (02) ==
LOC: ER 10:24
DX: K57.20 Diverticulitis of large intestine with perforation and abscess without bleeding (principal)
CPT/HCPCS: 74177; 81001; 82150; 83690; 85025; 86677; 96365; 96366; 96368; 96375; 99285; A9270; J2060; J2543; J2765; J7030; J7040; J7050; Q9967; 82040; 82247; 82310; 82374; 82435; 82565; 82947; 84075; 84132; 84155; 84295; 84450; 84460; 84520

== ENCOUNTER → 2017-09-05 | Outpatient (CLI) | payer MEDICARE, MEDICAID ==
[~2017-09-05] MED LIST changes: +CIPR-344 PO; +DIPH-740 PO; +METR-1 PO; +ONDA4TAB97 PO
== END ==
LOC: AMB 13:35
PROVIDERS: ATTEND Nurse Practitioner
DX: K57.92 Diverticulitis of intestine, part unspecified, without perforation or abscess without bleeding (principal)
CPT/HCPCS: A0425; A0433

== ENCOUNTER 2017-10-01 12:12 | Emergency (ER) | payer MEDICARE, MEDICAID ==
--- NOTE | 2017-10-01 12:23 | ER Report ---
History and Physical Time Seen By MD: 12:22 Hx. of Stated Complaint: Blocked wound vac HPI/ROS CHIEF COMPLAINT: Wound VAC blocked HISTORY OF PRESENT ILLNESS: 56-year-old male patient presents to emergency room with complaint of his wound VAC being blocked. Patient states that he had a wound VAC placed after surgery for an abscess and colectomy secondary to diverticulitis. Patient states that he been doing well and yesterday had the nurse from the [facility] come in and replace his dressing. He states that he believes that she placed the piece against the skin versus over the sponge. Patient states that he has had some itching, as well as discomfort. States that the large been going on for the past 2 hours. He denies any fevers, chills, nausea, vomiting or diarrhea. Patient is not a recent changes in his medication since being discharged from the hospital. He does have a follow-up appointment on October [address] Rao. Allergies: Coded Allergies: iodine (Verified Allergy, Unknown, HIVES, 09/05/17) only from red fish ketoprofen (Verified Allergy, Unknown, HIVES, 09/05/17) Home Meds Reported Medications Diphenhydramine Hcl (BENADRYL) 25 Mg Capsule, 25 MG PO BID, CAPSULE 08/26/17 Albuterol Sulfate 90 Mcg/Act (PROAIR HFA 90 MCG/ACT) 8.5 Gm Hfa.aer.ad, 2 PUFF IH Q4-6H, INHALER 11/16/16 Budesonide/Formoterol Fumarate (SYMBICORT 160-4.5 MCG INHALER) 10.2 Gm Inh, 1 PUFF INH DAILY, INH 10/01/15 Omeprazole (OMEPRAZOLE) 20 Mg Tablet.dr, 20 MG PO QDAY, TAB 10/01/15 Buspirone Hcl (BUSPIRONE HCL) 10 Mg Tablet, 10 MG PO BID, #20 TAB 10/01/15 Gabapentin (GABAPENTIN) 300 Mg Capsule, 600 MG PO TID 08/28/12 Lisinopril (LISINOPRIL) 20 Mg Tablet, 20 MG PO QDAY 08/28/12 Past Medical/Surgical History Patient has a past medical history of hypertension, emphysema, COPD, dysphagia, Ortiz's esophagus, diverticulitis, hep C, frequent UTI, bilateral arm fracture , clavicle fracture, back pain, no teeth, history of substance abuse, meth, cocaine, opiates, alcohol abuse, PTSD, depression. Patient has surgical history of left testicle removed, cervical fusion, teeth extraction, back surgery, colectomy secondary to diverticulitis, inguinal hernia repair. Reviewed Nurses Notes: Yes Hx Smoking: Yes (20 CIGS/DAY X 40YRS) Smoking Status: Current: Every Day Smoker Hx Substance Use Disorder: Yes (METH, COKE, OPIATES, clean for 7 years) Hx Alcohol Use: Yes Constitutional Vital Sign - Last 24 Hours 10/01/17 10/01/17 10/01/17 10/01/17 12:17 12:17 12:30 12:45 Temp 98.2 Pulse 93 91 84 Resp 16 B/P (MAP) 130/94 130/94 (106) 110/62 (78) Pulse Ox 96 97 93 O2 Delivery Room Air 10/01/17 10/01/17 13:00 13:30 Pulse 89 B/P (MAP) 112/85 (94) 127/87 (100) Pulse Ox 96 Physical Exam General appearance: Alert no distress. Respiratory: Chest is non tender, lungs are clear to auscultation. Cardiac: Regular rate and rhythm. Skin: Wound is red, there is no significant drainage, does have a sore that has developed secondary to the suction being on the skin. DIFFERENTIAL DIAGNOSIS: After history and physical exam differential diagnosis was considered for blocked wound VAC, infection, fever. Medical Decision Making ED Course/Re-evaluation ED Course Patient was admitted to examine, history and physical were obtained. Differential diagnoses were considered. On examination patient does appear to have a wound VAC that the suction is on the skin as opposed to on the sponge. Appears his socks on the scan up into the wound VAC causing some blockage. I did contact the nursing petroleum inspector supervisor, she was able to contact Ruby Anglin PT. She'll come and evaluate the condition and was able to change out the wound VAC. We will go ahead and discharge patient home at this time. I'll up with Dr. Rao on the as scheduled. He is return to the emergency room if condition worsens. He is to have the wound care nurse through home health take care of the wound moving forward. However he feels like he is more than welcome to change to the outpatient physical therapy for further treatment if needs be. Patient verbalized understanding and agreement with plan. Decision to Disposition Date: Oct 01, 2017 Decision to Disposition Time: 13:40 Depart Departure Latest Vital Signs Vital Signs Date Time Temp Pulse Resp B/P (MAP) Pulse Ox O2 Delivery O2 Flow Rate FiO2 10/01/17 13:30 127/87 (100) 10/01/17 13:00 89 96 10/01/17 12:17 98.2 16 Room Air Impression: Primary Impression: Encounter for management of wound VAC Condition: Improved Disposition: HOME OR SELF-CARE Patient Instructions: GENERAL ER DISCHARGE INSTRUCTIONS Additional Instructions: Increase fluid intake. Get plenty of rest. Follow up with Dr. Rao as previously directed. Return to the ER if condition worsens. Continue with current medications. MARTHA FAULKNER Oct 01, 2017 12:22
[2017-10-01 13:30] VITALS: BP 127/87
== END 2017-10-01 14:09 | disposition home or self-care (01) ==
LOC: ER 12:19
DX: L29.9 Pruritus, unspecified (principal)
CPT/HCPCS: 97161; 97605; 99282

== ENCOUNTER 2017-10-12 10:02 | Emergency (ER) | payer MEDICARE, MEDICAID ==
--- NOTE | 2017-10-12 10:30 | ER Report ---
History and Physical Time Seen By MD: 10:34 Hx. of Stated Complaint: COLOSTOMY ISSUES HPI/ROS CHIEF COMPLAINT: Issue with colostomy HISTORY OF PRESENT ILLNESS: Patient is a 56-year-old male frequent visitor to the emergency department presents today with a complaint of issues surrounding his external colostomy patient had this placed secondary to diagnosis of diverticulitis with colostomy with resection patient comes in today saying the home health nurses been incorrectly managing the site and is requesting surgical consult. Fortunately his surgeon and has been navigating in managing his case is actually here today is on his way to bedside patient denies any diarrhea no acute focal abdominal pain no nausea vomiting no chest pain no fever or chills REVIEW OF SYSTEMS: Respiratory: No cough, no dyspnea. Cardiovascular: No chest pain, no palpitations. Gastrointestinal: No vomiting colostomy evaluation Musculoskeletal: No back pain. Remainder of the 14 system rev: Yes Allergies: Coded Allergies: iodine (Verified Allergy, Unknown, HIVES, 10/12/17) only from red fish ketoprofen (Verified Allergy, Unknown, HIVES, 10/12/17) Home Meds Reported Medications Omeprazole Magnesium (PRILOSEC OTC) 20 Mg Tablet.dr, 1 TAB PO QDAY, TAB 10/12/17 Oxycodone Hcl 15 Mg Tab (OXYCODONE HCL 15 MG TAB) 15 Mg Tablet, 1 TAB PO QID, TAB 10/12/17 Budesonide/Formoterol Fumarate (SYMBICORT 160-4.5 MCG INHALER) 10.2 Gm Inh, 1 PUFF INH BID, INH 10/01/15 Buspirone Hcl (BUSPIRONE HCL) 10 Mg Tablet, 1 TAB PO BID, #20 TAB 10/01/15 Gabapentin (GABAPENTIN) 300 Mg Capsule, 2 CAP PO TID 08/28/12 Lisinopril (LISINOPRIL) 20 Mg Tablet, 1 TAB PO QDAY 08/28/12 Discontinued Reported Medications Diphenhydramine Hcl (BENADRYL) 25 Mg Capsule, 25 MG PO BID, CAPSULE 08/26/17 Albuterol Sulfate 90 Mcg/Act (PROAIR HFA 90 MCG/ACT) 8.5 Gm Hfa.aer.ad, 2 PUFF IH Q4-6H, INHALER 11/16/16 Omeprazole (OMEPRAZOLE) 20 Mg Tablet.dr, 20 MG PO QDAY, TAB 10/01/15 Reviewed Nurses Notes: Yes Old Medical Records Reviewed: Yes Hx Smoking: Yes (20 CIGS/DAY X 40YRS) Smoking Status: Current: Every Day Smoker Hx Substance Use Disorder: Yes (METH, COKE, OPIATES, clean for 7 years) Hx Alcohol Use: Yes Constitutional Vital Sign - Last 24 Hours 10/12/17 10:11 Temp 98.4 Pulse 119 Resp 14 B/P (MAP) 145/99 Pulse Ox 97 O2 Delivery Room Air Physical Exam General Appearance: The patient is alert, has no immediate need for airway protection and no current signs of toxicity. [ ] Eyes: Pupils equal and round no injection. Respiratory: Chest is non tender, lungs are clear to auscultation. Cardiac: regular rate and rhythm [ ] Gastrointestinal: Abdominal examination demonstrates a colostomy with no obvious signs of infection some redness around the site of the dressing patient has normal bowel sounds otherwise unremarkable exam Musculoskeletal: Neck: Neck is supple and non tender. Extremities have full range of motion and are non tender. Skin: No rashes or lesions. [ ] DIFFERENTIAL DIAGNOSIS: After history and physical exam differential diagnosis was considered for colostomy evaluation Medical Decision Making ED Course/Re-evaluation ED Course ED clinical course medical decision making patient was seen and evaluated at bedside by her general surgeon note is been written patient will be discharged wound care was seen in consult and evaluated patient tolerated well patient refined with surgery accordingly Decision to Disposition Date: Oct 12, 2017 Decision to Disposition Time: 11:32 Depart Departure Latest Vital Signs Vital Signs Date Time Temp Pulse Resp B/P (MAP) Pulse Ox O2 Delivery O2 Flow Rate FiO2 10/12/17 10:11 98.4 119 14 145/99 97 Room Air Impression: Primary Impression: Colostomy care Condition: Improved Disposition: HOME OR SELF-CARE Referrals: ELLY LAMAS MD 5 Days Patient Instructions: Colostomy Care (DC) KEELY GE MD Oct 12, 2017 10:30
[2017-10-12] MEDS ORDERED: OXYC15TA79 PO (10:43)
[2017-10-12] MEDS ORDERED: OMEP-218 PO (10:43)
[2017-10-12] MEDS ORDERED: NS(*) 0.9% 1000 ML BAG 1,000 ML IV ONE (10:56)
[2017-10-12 11:00] VITALS: BP 116/85
[2017-10-12] MEDS ORDERED: ONDANSETRON 4 MG/2 ML VIAL IVP ONE (11:00)
--- NOTE | 2017-10-12 11:29 | ER Inpatient Procedure ---
Inpatient Procedure WOUND Care, Midline laparotomy skin wound and colostomy Critical Care Time General Surgery Consult NOTE in the ED: S/P Mario's Procedure in September 30 at [facility] to[place] for a perforated diverticulitis that failed no operative management to include percutaneous drainage. Well known to me. Post op course complicated by a pelvic abscess that required percutaneous drainage. Skin wound not closed but packed then changed to wound VAC. Home health locally has been following but wound is progressively worse with new skin excoriation along 2 cm rim of the wound. Actual deep wound is only 1.5 cm x 3 cm. Stoma appliance also leaking at this time. No systemic sxs. Doing well otherwise. VS stable, normal Wound cleaned; stoma replaced. Wound therapy nurses consulted- Collagen placed into the wound over the granulation tissue. Skin edges will be allowed to be open to the air for healing. Assessment: Skin excoriation of midline laparotomy wound Healing midline laparotomy wound with good granulation base. Plan: Monitor for cellulitis or fungal infection of the excoriated skin Keep wound clean, dry and open to air but central granulation base covered with collagen. F/U with Dr Rao's wound nurse on Tuesday at 0900 Elly Martinez MD General Surgery ELLY MARTINEZ MD Oct 12, 2017 11:29
== END 2017-10-12 11:48 | disposition home or self-care (01) ==
LOC: ER 10:21
DX: Z43.3 Encounter for attention to colostomy (principal); F17.200 Nicotine dependence, unspecified, uncomplicated
CPT/HCPCS: 97161; 99283

== ENCOUNTER 2017-12-28 00:03 | Day surgery (SDC) | payer MEDICARE, MEDICAID ==
[~2017-12-28] VITALS: Ht 182.9 cm; Wt 79.4 kg
[~2017-12-28 00:03] MED LIST changes: +GABA-503 PO; +OMEP-218 PO; +OXYC10TA67 PO; +OXYC15TA79 PO
[2017-12-28] MEDS ORDERED: PROPOFOL EMUL(*) 10MG/ML 20 ML 20 ML ONE ×4 (07:05→09:29)
[2017-12-28 07:10] VITALS: BP 142/96
[2017-12-28] MEDS ORDERED: NORMOSOL R SOLN(*) 1000 ML BAG 1,000 ML IV PRN (07:25)
[2017-12-28] MEDS ORDERED: LIDOCAINE/SOD BICARB 8.4% SYR ID ONE (07:25)
[2017-12-28 09:47] VITALS: BP 102/87
--- NOTE | 2017-12-28 09:58 | Short(Outpt) Discharge Summary ---
Discharge Summary Reason for Hosp/Final Diag: (1) Colon cancer screening Status: Chronic Hospital Course & Plan: Colonoscopy with polypectomy x9 and EGD with dilation completed without problems. (2) Colostomy in place Status: Chronic (3) Dysphagia Status: Chronic Departure Discharge to: Home, Self Care Discharge Instructions Home Meds Reported Medications Oxycodone Hcl 10 Mg Tab (OXYCODONE HCL 10 MG TAB) 10 Mg Tablet, 10 MG PO 3-4XD, TAB 12/16/17 Gabapentin (GABAPENTIN) 600 Mg Tablet, 600 MG PO TID 12/16/17 Omeprazole Magnesium (PRILOSEC OTC) 20 Mg Tablet.dr, 1 TAB PO QDAY, TAB 10/12/17 Budesonide/Formoterol Fumarate (SYMBICORT 160-4.5 MCG INHALER) 10.2 Gm Inh, 2 PUFF INH BID, INH 10/01/15 Lisinopril (LISINOPRIL) 20 Mg Tablet, 1 TAB PO QDAY 08/28/12 Diet: Regular Activity: As Tolerated Special Instructions: Your upper endoscopy and colonoscopy were completed without problems and your prep was excellent (Good Job!!). I dilated your esophagus so we'll see if this helps you feel better. I removed 9 polyps from your colon and they were sent to pathology. I will discuss all these results when I see you back in my office and we'll discuss scheduling you for surgery at that time as well. My office will call you in the next couple of days to schedule your follow up appointment. RENNY MONTGOMERY MD Dec 28, 2017 09:58
[2017-12-28 10:24] VITALS: BP 133/102
[2017-12-28 10:26] VITALS: BP 148/98
== END 2017-12-28 10:40 | disposition home or self-care (01) ==
LOC: OR 00:03
PROVIDERS: ATTEND Surgery
DX: Z12.11 Encounter for screening for malignant neoplasm of colon (principal); D12.4 Benign neoplasm of descending colon; D12.3 Benign neoplasm of transverse colon; K62.1 Rectal polyp; K44.9 Diaphragmatic hernia without obstruction or gangrene
CPT/HCPCS: 00811; 43248; 45385; 88305; J2704

== ENCOUNTER 2018-03-16 00:54 | Inpatient (IN) | payer MEDICARE, MEDICAID ==
[2018-03-16] VITALS (9 sets, daily range): BP systolic 128–151; BP diastolic 89–98
[~2018-03-16] VITALS: Ht 180.3 cm; Wt 88.1 kg
[~2018-03-16 00:54] MED LIST changes: -GABA-503 PO; +GABA-533 PO; -METR-160 PO; +METR500T15 PO
[2018-03-16] MEDS ORDERED: ACETAMINOPHEN(*)1000 MG/100 ML 0 ML IVPB ONE (07:08)
[2018-03-16] MEDS ORDERED: LIDOCAINE/SOD BICARB 8.4% SYR ID ONE (10:10)
[2018-03-16] MEDS ORDERED: NORMOSOL R SOLN(*) 1000 ML BAG 1,000 ML IV PRN (10:10)
[2018-03-16] MEDS ORDERED: AMPICILLIN/SULBACT (*) 3 GM VL 3 GM in NS(*) 0.9% 100 ML BAG 100 ML IVPB ONE (10:10)
[2018-03-16] MEDS ORDERED: PREGABALIN 150 MG CAPSULE PO ONE (10:10)
[2018-03-16] MEDS ORDERED: MIDAZOLAM 2 MG/2 ML VIAL IVP PRN (10:10)
[2018-03-16] MEDS ORDERED: ACETAMINOPHEN 500 MG TAB PO ONE (10:10)
[2018-03-16] MEDS ORDERED: SUGAMMADEX SOD 200 MG/2 ML SDV ONE (11:03)
[2018-03-16] MEDS ORDERED: DEXAMETHASONE SOD 4 MG/ML VIAL ONE (11:03)
[2018-03-16] MEDS ORDERED: PROPOFOL EMUL(*) 10MG/ML 20 ML 20 ML ONE (11:03)
[2018-03-16] MEDS ORDERED: LIDOCAINE MPF 1% 5 ML VIAL ONE (11:03)
[2018-03-16] MEDS ORDERED: ONDANSETRON 4 MG/2 ML VIAL ONE (11:03)
[2018-03-16] MEDS ORDERED: fentaNYL CITR 250 MCG/5 ML AMP ONE (11:08)
[2018-03-16 11:14] LABS: PLATELET COUNT, AUTOMATED 372 K/uL (150-450)
[2018-03-16] MEDS ORDERED: ROPIVACAINE 0.5% 20 ML VIAL ONE (12:00)
[2018-03-16] MEDS ORDERED: HYDROmorphone HCL 2 MG/ML SDV ONE ×3 (15:08→18:02)
[2018-03-16] MEDS ORDERED: LABETALOL HCL 100 MG/20ML VIAL ONE (15:18)
[2018-03-16] MEDS ORDERED: ROCURONIUM BROM 10 MG/ML 10 ML ONE (15:52)
[2018-03-16] MEDS ORDERED: fentaNYL CITR 100 MCG/2 ML AMP ONE ×2 (17:49→18:02)
[2018-03-16] MEDS ORDERED: NALOXONE HCL 0.4 MG/ML VIAL IVP PRN (18:10)
[2018-03-16] MEDS ORDERED: FLUSH 10 ML SYR IVP PRN (18:10)
--- NOTE | 2018-03-16 18:29 | Post Operative Progress Note ---
Post Operative Progress Note Date: Mar 16, 2018 Time: 18:16 Surgeon: Jalen Dictation number: [id number] Plastic Sewer: Dr. Tripp Anesthesia: GETA by Dr. Vera Pre-Op Diagnosis: Colostomy Post-Op Diagnosis: NILSON Findings: None Procedure(s): Colostomy reversal Adhesiolysis Mobilization of splenic flexure Specimen Removed:(May be N/A): Distal sigmoid (attached to rectum) Colostomy Anastomotic donuts Complications: None Fluids: IVF: 3.6L crystalloid UOP: 450mL Estimated Blood Loss: 200mL Date OP Note Dictated: Mar 16, 2018 Time OP Note Dictated: 18:17 RENNY MONTGOMERY MD Mar 16, 2018 18:29
[2018-03-16] MEDS: ACETAMINOPHEN(*)1000 MG/100 ML 100 ML IVPB SCH (18:34)
[2018-03-16] MEDS ORDERED: PCA LOCKBOX KEYS XX ONE (19:37)
--- NOTE | 2018-03-16 19:43 | OPERATIVE REPORT 1 ---
EVENT DATE: March 16, 2018 SURGEON: Aaron Rao MD ANESTHESIOLOGIST: Aaron Vera MD ANESTHESIA: General endotracheal anesthesia. BARISTA: Darryl Tripp MD PREOPERATIVE DIAGNOSIS Colostomy. POSTOPERATIVE DIAGNOSIS Colostomy. PROCEDURES PERFORMED 1. Colostomy reversal. 2. Adhesiolysis. 3. Mobilization of splenic flexure. COMPLICATIONS None. CONDITION Stable. BLOOD LOSS 200 mL URINE OUTPUT 450 mL INTRAVENOUS FLUIDS Crystalloid 3.6 L. SPECIMENS 1. Distal sigmoid colon. This was attached to the rectum. 2. Colostomy. 3. Anastomotic donuts. INDICATIONS This is a 57-year-old gentleman who presented to the Emergency Room approximately five months ago with diverticulitis with a large abscess. He was sent down to [facility] for percutaneous drainage of the abscess, and he was managed by the surgical team there. He was treated with antibiotics and drainage of the abscess, but he failed to improve and ultimately required a Mario procedure by Dr. Martinez. He recovered well from this, and now he returns having completely healed from this surgery, requesting to have his colostomy reversed. DESCRIPTION OF PROCEDURE The patient was brought to the operating room and placed supine on the operating table. General endotracheal anesthesia was administered, and he was placed in the [facility] and positioned appropriately for the procedure with his arms tucked. A Maher catheter was inserted as well without any problems. His abdomen was prepped and draped in a sterile fashion, and a timeout was completed. I anesthetized the midline skin with 0.5% ropivacaine plain and then made a vertical midline incision right through the previous scar. I dissected through the dermis and subcutaneous fat. I identified the midline fascia and incised the midline fascia and entered the peritoneum bluntly with my finger. I then placed my fingers underneath the fascia and opened the fascia of the peritoneum up along the entire length of the incision. There were some adhesions, and these were taken down with a combination of electrocautery and scissors, but most of them were in the midline. The rest of the abdomen was fairly free of adhesions. Once these were taken down, the Bookwalter retractor was set up. The patient was placed in Trendelenburg, and the small bowel was placed underneath a moist towel and retracted towards the patient's right upper quadrant. The sutures on the rectal stump staple line were identified, and the staple line was grasped with a Claudette clamp. I dissected through the mesentery of the distal sigmoid down to the rectum as well as the lateral attachments all the way down to the peritoneal reflection. We then used a Contour stapler and divided the rectum at that level of the peritoneal reflection and passed the specimen off the field. Next, I repositioned the small bowel, and the patient was flattened. The colostomy was taken down by dividing the skin in an elliptical fashion around the stoma, dissecting through the dermis and into the subcutaneous tissues all the way down into the patient's abdomen. This was done without any problems, and the colon was pulled into the peritoneal cavity. The area around the colostomy was cleaned off and then divided with a DONNA 55 stapler with a blue load, and this was passed off the field. I then mobilized the whole descending colon and splenic flexure and the greater omentum from the transverse colon all the way around the splenic flexure. After the splenic flexure was completely mobilized, I had more than enough length to get to the rectal stump. It laid nicely and naturally down in the pelvis right adjacent to the rectal stump. I then cleaned off next to the staple line and removed the staple line with scissors, used an EEA sizer, and determined that a 29 mm stapler would be best for this patient as the 33 was too tight and would have torn the tissue if we tried to use it. The 29 mm EEA stapler was obtained, anvil removed, and inserted into the proximal open portion of the bowel. A 2-0 silk suture was used to make a pursestring all the way around this and tied down. Dr. Tripp then went between the patient's legs and inserted the main portion of the EEA stapler in the patient's anus after he inserted the 29 mm sizer. It went up to the stapler with no problems, and I palpated from the peritoneal side. He inserted the EEA stapler and advanced it up to the staple line while I palpated the stump. Then, he advanced the trocar, and it went right through the middle of the staple line. Then, I engaged the anvil to the trocar, and it clicked into place. Then, he pulled the anvil into the stapler until the marker was in the middle of the green zone, and then he fired the stapler, loosened the anvil two turns, and then removed the EEA stapler from the patient's rectum. I then placed a bowel clamp on the colon just upstream from the anastomosis and filled the pelvis with saline while he inserted a rigid proctoscope into the patient's rectum and insufflated with gas. There was no bubbling at all seen. He then removed the gas from the rectum, and I removed the bowel clamp and suctioned out the irrigation fluid. I inspected the anastomosis. There were no twists or kinks in the colon, and the anastomosis looked good with good perfusion and no tension. I then irrigated the pelvis with 2L of warm normal saline, removed all the irrigation fluid, and then irrigated the right and left upper quadrants with a couple more liters of warm normal saline as well. There was no evidence of bleeding from any of these quadrants after the surgery was completed, and all the irrigation fluid was removed with a pool tip sucker. Instrument and sponge counts were completed at this time, and they were correct times two. I placed two sheets of Seprafilm overlying the bowel and then closed the fascia at the colostomy takedown site on the peritoneal side with a running #1 PDS suture and then closed the superficial fascia with another #1 running PDS suture. The midline fascia was then closed with 0 looped PDS sutures. The skin in the midline was closed with sekou. I loosely closed the colostomy takedown site with sekou and placed two 1/4-inch Gela drains between the sekou to allow this wound to drain, and these were sutured to the skin with a 2-0 silk suture. I then cleaned and dried his abdomen. I then dressed the midline incision with a Prevena wound VAC dressing. I covered the stoma takedown site with dry gauze, which was taped into place. The patient was awakened and extubated in the operating room and transported to the recovery room in stable condition having tolerated the procedure without any apparent problems. SANDEEP
[2018-03-16] MEDS: NS(*) 0.9% 1000 ML BAG 1,000 ML IV PRN (19:46)
[2018-03-16] MEDS: HYDROmorphone PCA 6 MG/30 ML IV PRN (19:46)
[2018-03-16] MEDS: AMPICILLIN/SULBACT (*) 3 GM VL 3 GM in NS(*) 0.9% 100 ML BAG 100 ML IVPB SCH (19:52)
[2018-03-16] MEDS: GABAPENTIN 300 MG CAP PO SCH (21:00)
[2018-03-17] VITALS (8 sets, daily range): BP systolic 129–149; BP diastolic 84–94
[2018-03-17] MEDS: ACETAMINOPHEN(*)1000 MG/100 ML 100 ML IVPB SCH ×4 (00:12→18:21)
[2018-03-17] MEDS: AMPICILLIN/SULBACT (*) 3 GM VL 3 GM in NS(*) 0.9% 100 ML BAG 100 ML IVPB SCH ×4 (02:02→19:38)
[2018-03-17] MEDS: HYDROmorphone PCA 6 MG/30 ML IV PRN ×3 (03:04→14:54)
[2018-03-17] MEDS ORDERED: PCA LOCKBOX KEYS XX ONE (03:05)
[2018-03-17] MEDS: NS(*) 0.9% 1000 ML BAG 1,000 ML IV PRN ×3 (05:09→22:23)
[2018-03-17] MEDS: BUDESO/FORMOT 160/4.5 MCG 6 GM INH SCH ×2 (05:35→17:11)
[2018-03-17 05:51] LABS: PLATELET COUNT, AUTOMATED 368 K/uL (150-450)
[2018-03-17] MEDS ORDERED: PCA LOCKBOX KEYS XX PRN (07:35)
[2018-03-17] MEDS: LISINOPRIL 20 MG TAB PO SCH (08:23)
[2018-03-17] MEDS: GABAPENTIN 300 MG CAP PO SCH ×3 (08:23→20:29)
--- NOTE | 2018-03-17 08:37 | General Surgery Progress Note ---
Subjective Progress Notes Subjective Feeling nicotine withdrawal symptoms and wants a nicotine patch. Pain well controlled. No flatus yet. Physical Exam Vital Signs Date Time Temp Pulse Resp B/P (MAP) Pulse Ox O2 Delivery O2 Flow Rate FiO2 03/17/18 07:01 89 03/17/18 06:00 98.1 96 14 134/85 (101) Room Air 03/17/18 05:23 1.5 Intake and Output 03/17/18 07:00 Intake Total 5306 ml Output Total 1700 ml Balance 3606 ml Intake IV Total 5306 ml Output Urine Total 1500 ml Estimated Blood Loss 200 ml General Appearance: Alert, Awake, No Acute Distress, Afebrile GI: Other (Soft, appropriate postop TTP, prevena vac dressing in place with good vacuum seal. Stoma site is clean with serosanguinous drainage.) Result Diagram: 03/17/1829 03/17/1829 Assessment and Plan Problems: (1) Colostomy in place Status: Resolved Assessment & Plan: 03/17/18: POD#1 s/p colostomy takedown. Doing well this morning. Will start nicotine patch. Continue NPO until return of bowel function. Ambulation, IS, aggressive pulmonary hygiene, PPI, lovenox. Condition Stable. Time Spent: < 30 min Exam Sepsis Risk: No Definite Risk RENNY MONTGOMERY MD Mar 17, 2018 08:37
[2018-03-17] MEDS: PANTOPRAZOLE SOD 40 MG IV VIAL IVP SCH (08:39)
[2018-03-17] MEDS: NICOTINE 21 MG/24 HR PATCH TD SCH (08:40)
[2018-03-17] MEDS: ONDANSETRON 4 MG/2 ML VIAL IVP PRN ×2 (11:02→18:55)
--- NOTE | 2018-03-17 14:39 | Medical Nutrition Therapy ---
Nutrition Anthropometrics Height (Inches): 71.00 Height (Calculated Centimeters: [phone] Weight (Pounds): 194 Weight (Calculated Kilograms): 88.082 BMI: 27.1 [place] Nutrition Score: Adequate [place] Nutrition Risk Score: 20 Dietary Referral Nutrition Risk Factors: Nutrition Risk Comment: Physical Findings Physical Appearance: Overweight BMI 25-29 Skin Appearance Skin Appearance: Edema Edema Location Modifier: Edema Location: Type of Edema: Degree of Edema: Gastrointestinal Symptoms GI Symtoms: Nausea Tube Present: Bowel Sounds: Recent Bowel Pattern: Colostomy Stool Characteristics: Nutritional Diagnosis Nutritional Risk Acuity 3: Nausea Nutritional Acuity: 2-Moderate (colostomy reversal) Nutrition Diagnosis: Altered GI Function Nutrition Etiology: Physiological Causes Nutrition Problem/Etiology/Sym: AEB colostomy reversal Energy Requirement: 2650 (30kcal.kg) Protein Requirement: 88 (1gm/kg) Fluid Requirement: 2650 (30 ml/kg) Diet Type: NPO (Nothing by Mouth) Nutrition Intervention: Incr diet as tolerated Nutrition Monitoring & Eval Nutrition Goals: Eat 75-100% Meal RD Patient Assessment Time: [address] Assessment Type: RD Assessment Patient Nutrition Acuity: 2-Moderate Follow Up Date: Mar 20, 2018 Nutritional Comment: 03/17 Pt admitted for colostomy reversal. Pt curretnly NPO with hyperactive bowel sounds. BG 121. pt reporting nausea. Will cont to monitor. DUKE BECKWITH Mar 17, 2018 14:39
[2018-03-18] MEDS: ACETAMINOPHEN(*)1000 MG/100 ML 100 ML IVPB SCH ×5 (00:23→23:35)
[2018-03-18] MEDS: AMPICILLIN/SULBACT (*) 3 GM VL 3 GM in NS(*) 0.9% 100 ML BAG 100 ML IVPB SCH ×4 (02:02→20:25)
[2018-03-18] MEDS: BUDESO/FORMOT 160/4.5 MCG 6 GM INH SCH ×2 (05:06→18:10)
[2018-03-18 05:49] LABS: PLATELET COUNT, AUTOMATED 317 K/uL (150-450)
[2018-03-18 07:27] VITALS: BP 156/98
[2018-03-18] MEDS: NS(*) 0.9% 1000 ML BAG 1,000 ML IV PRN ×2 (07:47→18:44)
[2018-03-18] MEDS: PANTOPRAZOLE SOD 40 MG IV VIAL IVP SCH (08:35)
[2018-03-18] MEDS: ENOXAPARIN 40 MG/0.4ML SYR SC SCH (08:35)
[2018-03-18] MEDS: LISINOPRIL 20 MG TAB PO SCH (08:36)
[2018-03-18] MEDS: GABAPENTIN 300 MG CAP PO SCH ×3 (08:36→20:24)
[2018-03-18] MEDS: NICOTINE 21 MG/24 HR PATCH TD SCH (08:36)
[2018-03-18] MEDS ORDERED: NS 0.9% IV ONE (08:45)
[2018-03-18] MEDS ORDERED: [UNRECOGNIZED DRUG - OTHER] IV ONE (08:45)
--- NOTE | 2018-03-18 08:45 | General Surgery Progress Note ---
Subjective Progress Notes Subjective Abdominal pain is improving. Feels bloated, no N/V but belching quite a bit. No flatus yet. Coughing up quite a bit of sputum. Physical Exam Vital Signs Date Time Temp Pulse Resp B/P (MAP) Pulse Ox O2 Delivery O2 Flow Rate FiO2 03/18/18 07:27 99.4 99 32 156/98 (117) 90 Nasal Cannula 1.0 Intake and Output 03/18/18 07:00 Intake Total 15 ml Output Total 1750 ml Balance -1735 ml Intake Oral 15 ml Output Urine Total 1750 ml General Appearance: Alert, Awake, No Acute Distress, Afebrile GI: Other (Soft, appropriate postop TTP, prevena vac dressing is in place with good seal. Stoma takedown site looks good.) Extremities: Warm, Perfused Result Diagram: 03/18/18 0539 03/18/18538 Assessment and Plan Problems: (1) Colostomy in place Status: Resolved Assessment & Plan: 03/17/18: POD#1 s/p colostomy takedown. Doing well this morning. Will start nicotine patch. Continue NPO until return of bowel function. Ambulation, IS, aggressive pulmonary hygiene, PPI, lovenox. 03/18/18: POD#2. Doing fairly well. He is coughing and he's at risk for pneumonia. WBC is 18K, likely stress response from surgery but infection also possibility. He hasn't ambulated since surgery. I have repeatedly stressed the importance of early mobilization after surgery and he repeatedly responds that he'll get up and walk but nursing staff tell me that they repeatedly go in to get him out of bed and he refuses to get out of bed. Will order PT/OT and reinforced in no uncertain terms the importance of ambulation and again, he insists that he'll get up a walk today. Pt has postop ileus so continue bowel rest and IV fluids. Replace calcium and potassium. Ambulation!, PT/OT, OOB to chair, aggressive pulmonary hygiene, IS, lovenox, PPI. (2) Hypokalemia Status: Acute Assessment & Plan: Replace (3) Hypocalcemia Status: Acute Assessment & Plan: Replace (4) Smoker Status: Chronic Condition Stable. Time Spent: < 30 min Exam Sepsis Risk: Sepsis Risk RENNY MONTGOMERY MD Mar 18, 2018 08:45
--- NOTE | 2018-03-18 08:56 | NUR ---
Physical Therapy Impression PT eval complete. Pt reporting high levels of pain at rest. PT instructed patient in log roll technique supine<>sit, pt with fair re-demonstration, will benefit from further instruction. CGA for transfers and ambulation x15' with RW. Pt with increased nausea and subsequent vomiting after mobility. VSS. Nursing notified. PT encouraged pt to continue to mobilize with nursing staff. Physical Therapy Goals 1: Pt to complete bed mobility with Bessie 2: Pt to complete transfers with Bessie and least restrictive AD 3: Pt to ambulate 150' with SBA and least restrictive AD Patient's Goals
[2018-03-18] MEDS: ONDANSETRON 4 MG/2 ML VIAL IVP PRN ×2 (09:14→17:08)
[2018-03-18] MEDS: KCL (*) 20 MEQ/100 ML PREMIX 100 ML IV SCH ×2 (09:15→11:34)
--- NOTE | 2018-03-18 09:54 | Antimicrobial Stewardship ---
Antimicrobial Time Out Antimicrobial Stewardship MD Service: Other (SURGERY) Indications: Other (POST OP) Antimicrobial Used UNASYN 3G Start Date: Mar 16, 2018 Culture Results: N/A Eligible for PO Conversion Eligable for PO Conversion: No Reviewed with Provider Reviewed w/ Provider on Rounds: No Comments Comments PATIENT IS ON UNASYN 3G IV Q6H FOR POST OPERATIVE COVERAGE MARILEE SZYMANSKI Mar 18, 2018 09:54
[2018-03-18] MEDS: HYDROmorphone PCA 6 MG/30 ML IV PRN ×2 (09:56→17:02)
[2018-03-18] MEDS ORDERED: PCA LOCKBOX KEYS XX ONE ×2 (09:58→17:04)
[2018-03-18] MEDS ORDERED: NS(*) 0.9% 250 ML BAG 250 ML ONE (11:46)
[2018-03-18 11:50] VITALS: BP 147/98
[2018-03-18 14:49] VITALS: BP 157/106
[2018-03-18 19:26] VITALS: BP 145/90
[2018-03-18 23:36] VITALS: BP 139/97
[2018-03-19] MEDS: HYDROmorphone PCA 6 MG/30 ML IV PRN ×3 (01:31→17:27)
[2018-03-19] MEDS: AMPICILLIN/SULBACT (*) 3 GM VL 3 GM in NS(*) 0.9% 100 ML BAG 100 ML IVPB SCH ×4 (02:32→20:29)
[2018-03-19 02:34] VITALS: BP 154/97
[2018-03-19] MEDS: NS(*) 0.9% 1000 ML BAG 1,000 ML IV PRN (03:24)
[2018-03-19] MEDS: ACETAMINOPHEN(*)1000 MG/100 ML 100 ML IVPB SCH ×3 (05:50→17:27)
[2018-03-19] MEDS: BUDESO/FORMOT 160/4.5 MCG 6 GM INH SCH ×2 (05:52→17:21)
[2018-03-19 06:12] LABS: PLATELET COUNT, AUTOMATED 322 K/uL (150-450)
[2018-03-19 07:03] VITALS: BP 155/97
[2018-03-19] MEDS: ONDANSETRON 4 MG/2 ML VIAL IVP PRN ×2 (07:44→14:23)
[2018-03-19] MEDS ORDERED: NS(*) 0.9% 1000 ML BAG 1,000 ML IV PRN (09:35)
--- NOTE | 2018-03-19 09:35 | General Surgery Progress Note ---
Subjective Progress Notes Subjective Feeling better today. Passed flatus overnight, feeling hungry. Ambulated with PT yesterday. Physical Exam Vital Signs Date Time Temp Pulse Resp B/P (MAP) Pulse Ox O2 Delivery O2 Flow Rate FiO2 03/19/18 08:05 86 03/19/18 07:49 Nasal Cannula 1.5 03/19/18 07:03 99.4 100 32 155/97 (116) Intake and Output 03/19/18 07:00 Intake Total 2420 ml Output Total 1700 ml Balance 720 ml Intake Oral 20 ml IV Total 2400 ml Output Urine Total 1700 ml General Appearance: Alert, Awake ENT: Normal Neck: No Masses Cardiovascular: Normal Rhythm & Peripheral Pulses Respiratory: No Respiratory Distress GI: Soft and Non-Tender, Other (Midline prevena vac in place, good seal. ostomy site c/d/i, no erythema, payam with scant drainage on dressing. ) Musculoskeletal: No Weakness/Pain Extremities: Soft and Non Tender Integumentary: Skin Intact without Lesion / Mass Psych: Alert & Oriented X3 Result Diagram: 03/19/1852003/19/18520 Assessment and Plan Problems: (1) Colostomy in place Status: Resolved Assessment & Plan: 03/17/18: POD#1 s/p colostomy takedown. Doing well this morning. Will start nicotine patch. Continue NPO until return of bowel function. Ambulation, IS, aggressive pulmonary hygiene, PPI, lovenox. 03/18/18: POD#2. Doing fairly well. He is coughing and he's at risk for pneumonia. WBC is 18K, likely stress response from surgery but infection also possibility. He hasn't ambulated since surgery. I have repeatedly stressed the importance of early mobilization after surgery and he repeatedly responds that he'll get up and walk but nursing staff tell me that they repeatedly go in to get him out of bed and he refuses to get out of bed. Will order PT/OT and reinforced in no uncertain terms the importance of ambulation and again, he insists that he'll get up a walk today. Pt has postop ileus so continue bowel rest and IV fluids. Replace calcium and potassium. Ambulation!, PT/OT, OOB to chair, aggressive pulmonary hygiene, IS, lovenox, PPI. 03/19/28: POD #3. Feeling better today. Emesis after PT yesterday, but passed "lots" of flatus and feeling much better this AM. Working with IS - ~1500ml. Will decrease mIVF, continue PT/OT, continue OOB (goal 3-5time in hallway discussed). Start clears sparingly, will back off if nausea/emesis. Continue CAREERS ADVISER for now. D/c delgadillo catheter. (2) Hypokalemia Status: Acute Assessment & Plan: Replace (3) Hypocalcemia Status: Acute Assessment & Plan: Replace (4) Smoker Status: Chronic Exam Sepsis Risk: Sepsis Risk TOBY RIVERA MD Mar 19, 2018 09:35
[2018-03-19] MEDS: PANTOPRAZOLE SOD 40 MG IV VIAL IVP SCH (09:39)
[2018-03-19] MEDS: LISINOPRIL 20 MG TAB PO SCH (09:39)
[2018-03-19] MEDS: GABAPENTIN 300 MG CAP PO SCH ×3 (09:39→20:29)
[2018-03-19] MEDS: NICOTINE 21 MG/24 HR PATCH TD SCH (09:40)
[2018-03-19] MEDS: ENOXAPARIN 40 MG/0.4ML SYR SC SCH (09:40)
[2018-03-19 11:30] VITALS: BP 152/93
[2018-03-19 15:43] VITALS: BP 124/94
[2018-03-19 19:19] VITALS: BP 147/87
[2018-03-19 22:39] VITALS: BP 132/91
[2018-03-20] MEDS: ACETAMINOPHEN(*)1000 MG/100 ML 100 ML IVPB SCH ×2 (00:20→05:57)
[2018-03-20] MEDS: HYDROmorphone PCA 6 MG/30 ML IV PRN (01:22)
[2018-03-20] MEDS: AMPICILLIN/SULBACT (*) 3 GM VL 3 GM in NS(*) 0.9% 100 ML BAG 100 ML IVPB SCH ×4 (01:26→20:25)
[2018-03-20 03:37] VITALS: BP 144/88
[2018-03-20] MEDS: BUDESO/FORMOT 160/4.5 MCG 6 GM INH SCH ×2 (05:41→16:53)
[2018-03-20] MEDS ORDERED: HYDROmorphone HCL 2 MG/ML SDV IVP PRN (07:05)
[2018-03-20] MEDS ORDERED: IBUPROFEN 600 MG TAB PO PRN (07:05)
[2018-03-20] MEDS ORDERED: ACETAMINOPHEN 325 MG TAB PO PRN (07:05)
--- NOTE | 2018-03-20 07:12 | General Surgery Progress Note ---
Subjective Progress Notes Subjective Feeling much better this morning. Passing a lot of flatus. No BM yet. Pain under much better control. Tolerating clear liquid diet. Physical Exam Vital Signs Date Time Temp Pulse Resp B/P (MAP) Pulse Ox O2 Delivery O2 Flow Rate FiO2 03/20/18 05:59 16 91 03/20/18 03:37 98.8 88 144/88 (106) Nasal Cannula 1.5 Intake and Output 03/20/18 07:00 Intake Total 3280 ml Output Total 1775 ml Balance 1505 ml Intake Oral 380 ml IV Total 2900 ml Output Urine Total 1775 ml # Voids 2 General Appearance: Alert, Awake, No Acute Distress, Afebrile GI: Other (Soft, appropriate postop TTP, prevena vac dressing is intact with good seal. Stoma takedown incision is healing well without erythema and decreasing serous drainage.) Extremities: Warm, Perfused Result Diagram: 03/20/18 0538 03/20/18537 Assessment and Plan Problems: (1) Colostomy in place Status: Resolved Assessment & Plan: 03/17/18: POD#1 s/p colostomy takedown. Doing well this morning. Will start nicotine patch. Continue NPO until return of bowel function. Ambulation, IS, aggressive pulmonary hygiene, PPI, lovenox. 03/18/18: POD#2. Doing fairly well. He is coughing and he's at risk for pneumo keith. WBC is 18K, likely stress response from surgery but infection also possibility. He hasn't ambulated since surgery. I have repeatedly stressed the importance of early mobilization after surgery and he repeatedly responds that he'll get up and walk but nursing staff tell me that they repeatedly go in to get him out of bed and he refuses to get out of bed. Will order PT/OT and reinforced in no uncertain terms the importance of ambulation and again, he insists that he'll get up a walk today. Pt has postop ileus so continue bowel rest and IV fluids. Replace calcium and potassium. Ambulation!, PT/OT, OOB to chair, aggressive pulmonary hygiene, IS, lovenox, PPI. 03/19/18: POD #3. Feeling better today. Emesis after PT yesterday, but passed "lots" of flatus and feeling much better this AM. Working with IS - ~1500ml. Will decrease mIVF, continue PT/OT, continue OOB (goal 3-5time in hallway discussed). Start clears sparingly, will back off if nausea/emesis. Continue OLIVE GRADER for now. D/c delgadillo catheter. 03/20/18: POD#4. Doing well. Tolerating clear diet. Will start regular diet this morning and stop IV fluids. Continue ambulation, PT/OT, IS, aggressive pulmonary hygiene, PPI, lovenox. Will change to PO meds this morning. Delgadillo removed yesterday and he's urinating without problems. (2) Hypokalemia Status: Resolved Assessment & Plan: Replace (3) Hypocalcemia Status: Resolved Assessment & Plan: Replace (4) Smoker Status: Chronic Condition Stable. Time Spent: < 30 min Exam Sepsis Risk: No Definite Risk RENNY MONTGOMERY MD Mar 20, 2018 07:12
[2018-03-20] MEDS: oxyCODONE HCL 5 MG CAP PO PRN ×4 (08:09→20:25)
[2018-03-20] MEDS: ENOXAPARIN 40 MG/0.4ML SYR SC SCH (09:11)
[2018-03-20] MEDS: GABAPENTIN 300 MG CAP PO SCH ×3 (09:11→20:26)
[2018-03-20] MEDS: PANTOPRAZOLE SOD 40 MG TABEC PO SCH (09:11)
[2018-03-20] MEDS: LISINOPRIL 20 MG TAB PO SCH (09:11)
[2018-03-20] MEDS: NICOTINE 21 MG/24 HR PATCH TD SCH (09:11)
--- NOTE | 2018-03-20 10:51 | NUR ---
Occupational Therapy Impression Subjective eval, pt returning to bed with nursing upon OT arrival. Pt educated on [facility] for borrowing AE, reports he will consider but does not desire a RW or shower chair at this time. Pt reports hopes to discharge home tomorrow and has no questions/concerns for OT. Reports having adequate support, awareness of services, and declined HH OT-knowledgeable for how to obtain HH OT should he change his mind. Occupational Therapy Goals 1) Pt will be SBA UB/LB dressing. 2) Pt will be SBA grooming/hygiene. 3) Pt will be SBA toilet task. Patient's Goal
--- NOTE | 2018-03-20 12:25 | NUR ---
Physical Therapy Impression Pt very jovial and agreeable to ambulation in hallway after toileting. Pt notes that he did have breakfast, had a BM with gas upon transfer to and was then agreeable to sit up in chair for lunch after therapy session. Pt was indep with all bed mobility using proper log roll technique without grimace or vocalization of pain. Indep for sit to/from stand from a variety of surfaces and ambulated in hallway x >500', including up/down platform step to simulate entry to home. Pt did choose to use FWW with mobility, for comfort, but does demo adequate balance to be safe without this device if necessary. Pt on 2 L/min supplemental O2 and HR increased to 120bpm with O2 at 93% immediately after long walk in hallway with conversation throughout. Physical Therapy Goals 1: Pt to complete bed mobility with Bessie 2: Pt to complete transfers with Bessie and least restrictive AD 3: Pt to ambulate 150' with SBA and least restrictive AD Patient's Goals
--- NOTE | 2018-03-20 13:40 | Medical Nutrition Therapy ---
Nutrition Anthropometrics Height (Inches): 71.00 Height (Calculated Centimeters: 180.702591 Weight (Pounds): 194 Weight (Calculated Kilograms): 88.082 BMI: 27.1 [place] Nutrition Score: Probably Inadequate [place] Nutrition Risk Score: 19 Dietary Referral Nutrition Risk Factors: Nutrition Risk Comment: Physical Findings Physical Appearance: Overweight BMI 25-29 Skin Appearance Skin Appearance: Edema Edema Location Modifier: Edema Location: Type of Edema: Degree of Edema: Gastrointestinal Symptoms GI Symtoms: Nausea, Change in Bowel Pattern Tube Present: Bowel Sounds: Recent Bowel Pattern: Colostomy Stool Characteristics: Nutritional Diagnosis Nutritional Acuity: 2-Moderate (colostomy reversal) Nutrition Diagnosis: Altered GI Function Nutrition Etiology: Physiological Causes Nutrition Problem/Etiology/Sym: AEB colostomy reversal Energy Requirement: 2650 (30kcal.kg) Protein Requirement: 88 (1gm/kg) Fluid Requirement: 2650 (30 ml/kg) Diet Type: Diet as Tolerated SREEKANTH/REG Nutrition Intervention: Cont diet as ordered, Encourage intake Nutrition Monitoring & Eval Nutrition Goals: Eat 75-100% Meal Nutrition Follow-Up: Good Intake RD Patient Assessment Time: [address] Assessment Type: RD Re-Assessment Patient Nutrition Acuity: 2-Moderate Follow Up Date: Mar 24, 2018 Nutritional Comment: 1/ Pt admitted for colostomy reversal. Pt curretnly NPO with hyperactive bowel sounds. BG 121. pt reporting nausea. Will cont to monitor. BK 03/20 Diet advanced to regular. Pt ate 75%, no reports of nausea. Pt's admititng wt on standing scale 184#. Next day on bedscale reported 194#. difference probably r/t difference in scale and/or fluids. Will cont to monitor and encourage intake. DUKE BECKWITH Mar 20, 2018 13:40
--- NOTE | 2018-03-20 13:50 | NUR ---
PHYSICAL THERAPY INFORMATION TRANSFER SHEET BED MOBILITY: Modified I/ AE TRANSFERS: Modified I/ AE GAIT: 500 ' with O2 at 2 L/min RW and Modified I/ AE Weightbearing Status: STAIRS: 1 platform step with rail Independent. EXERCISES: n/a Verbalizes Needs: Yes Understands Directions Yes Cooperative: Yes Family Teaching: Yes Physical Therapy Comment: Pt may benefit from further [facility] services pending MD order.
[2018-03-20 14:27] VITALS: BP 135/79
[2018-03-20 19:46] VITALS: BP 134/96
[2018-03-21 00:27] VITALS: BP 157/92
[2018-03-21] MEDS: oxyCODONE HCL 5 MG CAP PO PRN ×2 (02:31→08:31)
[2018-03-21] MEDS: AMPICILLIN/SULBACT (*) 3 GM VL 3 GM in NS(*) 0.9% 100 ML BAG 100 ML IVPB SCH ×2 (02:33→08:19)
[2018-03-21 02:35] VITALS: BP 145/92
[2018-03-21] MEDS: BUDESO/FORMOT 160/4.5 MCG 6 GM INH SCH (05:35)
[2018-03-21 05:58] LABS: PLATELET COUNT, AUTOMATED 384 K/uL (150-450)
[2018-03-21 06:56] VITALS: BP 126/89
[2018-03-21] MEDS ORDERED: OXYC5TAB38 PO (08:06)
[2018-03-21] MEDS ORDERED: NICO1PAT88 TD (08:06)
--- NOTE | 2018-03-21 08:15 | Short(Outpt) Discharge Summary ---
Discharge Summary Reason for Hosp/Final Diag: (1) Colostomy in place Status: Resolved Hospital Course & Plan: 03/17/18: POD#1 s/p colostomy takedown. Doing well this morning. Will start nicotine patch. Continue NPO until return of bowel function. Ambulation, IS, aggressive pulmonary hygiene, PPI, lovenox. 03/18/18: POD#2. Doing fairly well. He is coughing and he's at risk for pneumonia. WBC is 18K, likely stress response from surgery but infection also possibility. He hasn't ambulated since surgery. I have repeatedly stressed the importance of early mobilization after surgery and he repeatedly responds that he'll get up and walk but nursing staff tell me that they repeatedly go in to get him out of bed and he refuses to get out of bed. Will order PT/OT and reinforced in no uncertain terms the importance of ambulation and again, he insists that he'll get up a walk today. Pt has postop ileus so continue bowel rest and IV fluids. Replace calcium and potassium. Ambulation!, PT/OT, OOB to chair, aggressive pulmonary hygiene, IS, lovenox, PPI. 03/19/18: POD #3. Feeling better today. Emesis after PT yesterday, but passed "lots" of flatus and feeling much better this AM. Working with IS - ~1500ml. Will decrease mIVF, continue PT/OT, continue OOB (goal 3-5time in hallway discussed). Start clears sparingly, will back off if nausea/emesis. Continue GREENSKEEPER HEAD for now. D/c delgadillo catheter. 03/20/18: POD#4. Doing well. Tolerating clear diet. Will start regular diet this morning and stop IV fluids. Continue ambulation, PT/OT, IS, aggressive pulmonary hygiene, PPI, lovenox. Will change to PO meds this morning. Delgadillo removed yesterday and he's urinating without problems. 03/21/18: POD#5. Doing well. Passing flatus and formed stools. Pain under good control with PO meds. Afeb VSS, WBC now normal. Prevena vac dressing removed and midline incision looks good without erythema or drainage. Gela drains removed from colostomy takedown wound; this wound looks good with some serous drainage. Will d/c to home today with home health nursing and 1 week f/u with me. (2) Hypokalemia Status: Resolved Hospital Course & Plan: Replace (3) Hypocalcemia Status: Resolved Hospital Course & Plan: Replace (4) Smoker Status: Chronic Departure Discharge to: Home, Home Health Discharge Instructions Home Meds Active Scripts Nicotine (NICOTINE PATCH) 1 Each Patch.td24, 1 PATCH.24H TD QDAY, #14 PATCH.24H 0 Refills Prov:RENNY RAO MD 03/21/18 Oxycodone Hcl (OXYCODONE HCL) 5 Mg Tablet, 1 TAB PO Q6H PRN for PAIN, #30 TAB 0 Refills Prov:RENNY RAO MD 03/21/18 Reported Medications Oxycodone Hcl 10 Mg Tab (OXYCODONE HCL 10 MG TAB) 10 Mg Tablet, 10 MG PO 3-4XD, TAB 12/16/17 Gabapentin (GABAPENTIN) 600 Mg Tablet, 600 MG PO TID 12/16/17 Omeprazole Magnesium (PRILOSEC OTC) 20 Mg Tablet.dr, 1 TAB PO QDAY, TAB 10/12/17 Budesonide/Formoterol Fumarate (SYMBICORT 160-4.5 MCG INHALER) 10.2 Gm Inh, 2 PUFF INH BID, INH 10/01/15 Lisinopril (LISINOPRIL) 20 Mg Tablet, 1 TAB PO QDAY 08/28/12 Follow up Referrals: General Surgery - 03/28/18 @ Surgery, General with RENNY RAO MD You have a follow up appointment scheduled with Dr. Rao on 03/28/18, at 11:30am. Diet: Regular Activity: No Heavy Lifting Special Instructions: You may leave the midline incision open to air but if it starts draining you can cover it with a dry gauze. Cover the colostomy wound with a dry gauze and change the dressing daily. You may remove the dressing and shower as desired and then place a new dry gauze on the wound after showering. Avoid any activity that involves straining or lifting more than 10 pounds for 6 weeks after surgery to avoid a hernia developing at your incisions. RENNY RAO MD Mar 21, 2018 08:15
[2018-03-21] MEDS: GABAPENTIN 300 MG CAP PO SCH (08:27)
[2018-03-21] MEDS: PANTOPRAZOLE SOD 40 MG TABEC PO SCH (08:27)
[2018-03-21] MEDS: LISINOPRIL 20 MG TAB PO SCH (08:27)
[2018-03-21] MEDS: ENOXAPARIN 40 MG/0.4ML SYR SC SCH (08:28)
[2018-03-21] MEDS: NICOTINE 21 MG/24 HR PATCH TD SCH (08:28)
== END 2018-03-21 10:28 | disposition home health service (06) | DRG 330 ==
LOC: OR 00:54 → MED 19:30
PROVIDERS: ADMIT Surgery; ATTEND Surgery
PROC: 0DBN0ZZ Excision of Sigmoid Colon, Open Approach (ICD-10-PCS; principal; 2018-03-16 13:18)
DX: Z43.3 Encounter for attention to colostomy (principal); F17.213 Nicotine dependence, cigarettes, with withdrawal; E87.6 Hypokalemia; E83.51 Hypocalcemia; I10 Essential (primary) hypertension; G89.4 Chronic pain syndrome; J44.9 Chronic obstructive pulmonary disease, unspecified; K22.70 Barrett's esophagus without dysplasia; K21.9 Gastro-esophageal reflux disease without esophagitis; R13.10 Dysphagia, unspecified; F32.9 Major depressive disorder, single episode, unspecified; F43.12 Post-traumatic stress disorder, chronic; E78.5 Hyperlipidemia, unspecified; Z90.49 Acquired absence of other specified parts of digestive tract; Z98.1 Arthrodesis status; Z86.19 Personal history of other infectious and parasitic diseases
CPT/HCPCS: 36415; 80305; 82310; 82374; 82435; 82565; 82947; 84132; 84295; 84520; 85025; 85027; 88304; 94640; 97161; 97165; C9113; J0131; J0295; J1100; J1170; J1650; J2001; J2250; J2405; J2704; J2795; J3010; J3480; J3490; J7030; J7040; J7050